=== PATIENT | female | born 1975 | race African-American/Black ===

== ENCOUNTER 2019-12-06 08:10 | Emergency (ER) | payer MEDICAID ==
[~2019-12-06] VITALS: Ht 175.3 cm; Wt 163.6 kg
[2019-12-06 08:14] VITALS: BP 117/50
== END 2019-12-06 09:05 | disposition left against medical advice (07) ==
LOC: EMS 08:11
DX: R45.851 Suicidal ideations (principal); Z53.21 Procedure and treatment not carried out due to patient leaving prior to being seen by health care provider

== ENCOUNTER 2020-01-13 05:21 | Inpatient (IN) | payer MEDICAID ==
[~2020-01-13] VITALS: Ht 175.3 cm; Wt 163.7 kg
[2020-01-13] VITALS (7 sets, daily range): BP systolic 118–125; BP diastolic 58–78
[2020-01-13] MEDS ORDERED: OLAN10TA3 PO (05:40)
[2020-01-13] MEDS ORDERED: HYDR-4031 PO (05:40)
[2020-01-13] MEDS ORDERED: RISP2 PO (05:40)
[2020-01-13 06:12] LABS: ANION GAP 11 mmol/L (8-16); CALCIUM, TOTAL 9.1 mg/dL (8.8-10.5); CARBON DIOXIDE 26 mmol/L (22-29); CHLORIDE 103 mmol/L (98-107); CREATININE 0.76 mg/dL (0.60-1.30); GLOMERULAR FILTR. RATE CALC > 60 mL/min (>60); GLUCOSE,RANDOM 72 mg/dL (70-110); SODIUM SERUM 140 mmol/L (136-145); UREA NITROGEN, BLOOD 9 mg/dL (7-18)
[2020-01-13 06:13] LABS: BASOPHILS % (AUTO) 0.9 % (0.0-2.0); EOSINOPHILS % (AUTO) 1.5 % (1.0-6.0); HEMATOCRIT 34.1 % (36-46); HEMOGLOBIN 10.9 g/dL (12.0-16.0); LYMPHOCYTES # (AUTO) 1.7 K/uL (1.0-4.8); LYMPHOCYTES % (AUTO) 24.1 % (22.0-44.0); MEAN CORPUSCULAR HEMOGLOBIN 24.7 pg (26.0-34.0); MEAN CORPUSCULAR VOLUME 77 fL (80-100); MONOCYTES # (AUTO) 0.4 K/uL (0.1-1.0); MONOCYTES % (AUTO) 5.5 % (2.0-9.0); NEUTROPHILS # (AUTO) 4.8 K/uL (1.8-7.7); PLATELET COUNT (AUTO) 221 K/uL (150-450); RED BLOOD CELL COUNT(AUTO) 4.44 MIL/uL (4.00-5.20); RED CELL DISTRIBUTION WIDTH 18.4 % (11.5-14.5)
[2020-01-13 06:19] LABS: AMPHET/METH SCREEN,URINE POSITIVE (NEGATIVE); BARBITURATE SCREEN, URINE NEGATIVE (NEGATIVE); BENZODIAZEPINES SCREEN,URINE NEGATIVE (NEGATIVE); CANNABINOID SCREEN,URINE POSITIVE (NEGATIVE); COCAINE SCREEN,URINE NEGATIVE (NEGATIVE); METHADONE SCREEN, URINE NEGATIVE (NEGATIVE); OPIATE SCREEN,URINE NEGATIVE (NEGATIVE); PHENCYCLIDINE SCREEN,URINE POSITIVE (NEGATIVE)
[2020-01-13 06:27] LABS: ALANINE AMINOTRANSFERASE 20 U/L (12-78); ALBUMIN 3.7 g/dL (3.4-5.0); ALKALINE PHOSPHATASE 85 U/L (46-116); ASPARTATE AMINOTRANSFERASE 17 U/L (15-37); BILIRUBIN,TOTAL 0.4 mg/dL (0.1-1.0); HCG,QUANTITATIVE < 1 mIU/mL (0-6); TOTAL PROTEIN, SERUM 7.9 g/dL (6.4-8.2)
[2020-01-13 06:42] LABS: BILIRUBIN,URINE NEGATIVE (NEGATIVE); GLUCOSE, URINE (UA) NEGATIVE (NEGATIVE); KETONES,URINE NEGATIVE (NEGATIVE); LEUKOCYTE ESTERASE ,URINE NEGATIVE (NEGATIVE); NITRATE,URINE NEGATIVE (NEGATIVE); OCCULT BLOOD,URINE NEGATIVE (NEGATIVE); UROBILINOGEN,URINE 0.2 mg/dL (<=1.0)
[2020-01-13 06:43] LABS: APPEARANCE,URINE CLEAR (CLEAR); PROTEIN,URINE TRACE (NEGATIVE)
[2020-01-13] MEDS ORDERED: LOPERAMIDE HCL 2 MG CAPSULE PO PRN (10:00)
[2020-01-13] MEDS ORDERED: LORazepam 2 MG TABLET PO PRN (10:00)
[2020-01-13] MEDS ORDERED: GuaiFENesin/D-METHORPHAN [SUGAR-FREE] 200-20MG/10 ML SYRUP UDCUP PO PRN (10:00)
[2020-01-13] MEDS ORDERED: OLANZapine 5 MG RAPDIS TABLET PO PRN (10:00)
[2020-01-13] MEDS ORDERED: MAGNESIUM HYDROXIDE SUSPENSION 30 ML UDCUP PO PRN (10:00)
[2020-01-13] MEDS ORDERED: MAG HYDROX/AL HYDROX/SIMETH ES 30 ML SUSPENSION UDCUP PO PRN (10:00)
[2020-01-13] MEDS ORDERED: HydrOXYzine PAMOATE 50 MG CAPSULE PO PRN (10:00)
[2020-01-13] MEDS ORDERED: TUBERCULIN, PURIFIED PROTEIN DERIVATIVE 5 TU/0.1 ML SYRINGE ID ONE (10:00)
[2020-01-13] MEDS: GABAPENTIN 300 MG CAPSULE PO SCH ×3 (12:11→20:54)
[2020-01-13] MEDS: LORazepam 2 MG TABLET PO PRN ×2 (12:11→16:49)
[2020-01-13] MEDS: THIAMINE 100 MG TABLET PO SCH (20:54)
[2020-01-13] MEDS ORDERED: OLANZapine 5 MG RAPDIS TABLET PO SCH (21:00)
[2020-01-14] VITALS (8 sets, daily range): BP systolic 104–140; BP diastolic 56–78
[2020-01-14] MEDS: LORazepam 2 MG TABLET PO PRN (02:43)
[2020-01-14] MEDS ORDERED: LORazepam 2 MG TABLET PO PRN (07:00)
[2020-01-14 08:22] LABS: CHOL/HDL RATIO 2.1 (3.9-5.7); FREE T4 (FREE THYROXINE) 0.99 ng/dL (0.76-1.46); THYROID STIMULATING HORMONE 0.1 uIU/mL (0.36-3.74)
[2020-01-14] MEDS: NICOTINE 21 MG/24 HOUR PATCH TD SCH (09:07)
[2020-01-14] MEDS: GABAPENTIN 300 MG CAPSULE PO SCH ×4 (09:08→20:50)
[2020-01-14] MEDS: THIAMINE 100 MG TABLET PO SCH ×2 (09:08→16:38)
[2020-01-14] MEDS: MULTIVITAMINS WITH MINERALS, THERAPEUTIC TABLET PO SCH (09:08)
[2020-01-14] MEDS: FOLIC ACID 1 MG TABLET PO SCH (09:08)
[2020-01-14] MEDS: NALTREXONE HCL 50 MG TABLET PO SCH (09:08)
[2020-01-14] MEDS: FLUoxetine HCL 20 MG CAPSULE PO SCH (09:09)
[2020-01-14] MEDS: LORazepam 2 MG TABLET PO SCH ×4 (09:09→20:50)
[2020-01-14] MEDS: PROMETHAZINE HCL 25 MG TABLET PO PRN ×2 (10:17→17:16)
[2020-01-14] MEDS: ACETAMINOPHEN 325 MG TABLET PO PRN (17:16)
[2020-01-14] MEDS: OLANZapine 10 MG RAPDIS TABLET PO SCH (20:53)
[2020-01-15 00:26] VITALS: BP 127/94
[2020-01-15 01:15] VITALS: BP 127/94
[2020-01-15 08:23] VITALS: BP 146/85
[2020-01-15] MEDS: FOLIC ACID 1 MG TABLET PO SCH (09:23)
[2020-01-15] MEDS: THIAMINE 100 MG TABLET PO SCH ×2 (09:23→16:56)
[2020-01-15] MEDS: GABAPENTIN 300 MG CAPSULE PO SCH ×4 (09:23→20:21)
[2020-01-15] MEDS: MULTIVITAMINS WITH MINERALS, THERAPEUTIC TABLET PO SCH (09:23)
[2020-01-15] MEDS: FLUoxetine HCL 20 MG CAPSULE PO SCH (09:24)
[2020-01-15] MEDS: LORazepam 2 MG TABLET PO SCH ×4 (09:24→20:20)
[2020-01-15] MEDS: NICOTINE 21 MG/24 HOUR PATCH TD SCH (09:24)
[2020-01-15] MEDS: NALTREXONE HCL 50 MG TABLET PO SCH (09:24)
[2020-01-15 16:12] VITALS: BP 107/70
[2020-01-15 16:15] VITALS: BP 107/70
[2020-01-15] MEDS: OLANZapine 10 MG RAPDIS TABLET PO SCH (20:20)
[2020-01-16] VITALS (7 sets, daily range): BP systolic 101–148; BP diastolic 65–103
[2020-01-16] MEDS: ZOLPIDEM TARTRATE 10 MG TABLET PO PRN (01:25)
[2020-01-16] MEDS: ACETAMINOPHEN 325 MG TABLET PO PRN (01:25)
[2020-01-16] MEDS ORDERED: LORazepam 1 MG TABLET PO PRN (07:00)
[2020-01-16] MEDS: NALTREXONE HCL 50 MG TABLET PO SCH (09:07)
[2020-01-16] MEDS: LORazepam 1 MG TABLET PO SCH ×4 (09:07→20:31)
[2020-01-16] MEDS: GABAPENTIN 300 MG CAPSULE PO SCH ×2 (09:08→12:12)
[2020-01-16] MEDS: MULTIVITAMINS WITH MINERALS, THERAPEUTIC TABLET PO SCH (09:08)
[2020-01-16] MEDS: THIAMINE 100 MG TABLET PO SCH ×2 (09:08→16:28)
[2020-01-16] MEDS: FOLIC ACID 1 MG TABLET PO SCH (09:08)
[2020-01-16] MEDS: NICOTINE 21 MG/24 HOUR PATCH TD SCH (09:08)
[2020-01-16] MEDS: FLUoxetine HCL 20 MG CAPSULE PO SCH (10:06)
[2020-01-16] MEDS: GABAPENTIN 400 MG CAPSULE PO SCH ×2 (16:28→20:31)
[2020-01-16] MEDS: OLANZapine 10 MG RAPDIS TABLET PO SCH (20:31)
[2020-01-17 02:49] VITALS: BP 100/74
[2020-01-17 08:33] VITALS: BP 128/79
[2020-01-17] MEDS: FLUoxetine HCL 20 MG CAPSULE PO SCH (09:49)
[2020-01-17] MEDS: FOLIC ACID 1 MG TABLET PO SCH (09:49)
[2020-01-17] MEDS: MULTIVITAMINS WITH MINERALS, THERAPEUTIC TABLET PO SCH (09:49)
[2020-01-17] MEDS: GABAPENTIN 400 MG CAPSULE PO SCH ×4 (09:49→21:02)
[2020-01-17] MEDS: THIAMINE 100 MG TABLET PO SCH ×2 (09:49→17:01)
[2020-01-17] MEDS: NALTREXONE HCL 50 MG TABLET PO SCH (09:50)
[2020-01-17] MEDS: LORazepam 1 MG TABLET PO PRN ×2 (09:50→17:00)
[2020-01-17] MEDS: NICOTINE 21 MG/24 HOUR PATCH TD SCH (09:51)
[2020-01-17 13:45] VITALS: BP 128/79
[2020-01-17 16:35] VITALS: BP 135/90
[2020-01-17 18:39] VITALS: BP 128/79
[2020-01-17] MEDS: OLANZapine 10 MG RAPDIS TABLET PO SCH (21:03)
[2020-01-17] MEDS: DIVALPROEX SODIUM 500 MG ER TABLET PO SCH (21:03)
[2020-01-18] VITALS: BP 138/89
[2020-01-18 08:30] VITALS: BP 102/62
[2020-01-18] MEDS: NICOTINE 21 MG/24 HOUR PATCH TD SCH (09:45)
[2020-01-18] MEDS: GABAPENTIN 400 MG CAPSULE PO SCH ×4 (09:45→20:59)
[2020-01-18] MEDS: NALTREXONE HCL 50 MG TABLET PO SCH (09:45)
[2020-01-18] MEDS: FOLIC ACID 1 MG TABLET PO SCH (09:45)
[2020-01-18] MEDS: THIAMINE 100 MG TABLET PO SCH ×2 (09:46→17:10)
[2020-01-18] MEDS: FLUoxetine HCL 20 MG CAPSULE PO SCH (09:46)
[2020-01-18] MEDS: MULTIVITAMINS WITH MINERALS, THERAPEUTIC TABLET PO SCH (09:46)
[2020-01-18 10:10] VITALS: BP 102/62
[2020-01-18 16:15] VITALS: BP 118/69
[2020-01-18] MEDS: DIVALPROEX SODIUM 500 MG ER TABLET PO SCH (20:59)
[2020-01-18] MEDS: OLANZapine 10 MG RAPDIS TABLET PO SCH (20:59)
[2020-01-18] MEDS: ZOLPIDEM TARTRATE 10 MG TABLET PO PRN (21:20)
[2020-01-19 03:18] VITALS: BP 110/70
[2020-01-19] MEDS: NICOTINE 21 MG/24 HOUR PATCH TD SCH (09:02)
[2020-01-19] MEDS: GABAPENTIN 400 MG CAPSULE PO SCH ×4 (09:02→20:12)
[2020-01-19] MEDS: MULTIVITAMINS WITH MINERALS, THERAPEUTIC TABLET PO SCH (09:02)
[2020-01-19] MEDS: NALTREXONE HCL 50 MG TABLET PO SCH (09:02)
[2020-01-19] MEDS: THIAMINE 100 MG TABLET PO SCH ×2 (09:02→16:26)
[2020-01-19] MEDS: FOLIC ACID 1 MG TABLET PO SCH (09:02)
[2020-01-19] MEDS: FLUoxetine HCL 20 MG CAPSULE PO SCH (09:02)
[2020-01-19 17:31] VITALS: BP 129/71
[2020-01-19] MEDS: OLANZapine 10 MG RAPDIS TABLET PO SCH (20:12)
[2020-01-19] MEDS: ZOLPIDEM TARTRATE 10 MG TABLET PO PRN (20:12)
[2020-01-19] MEDS: DIVALPROEX SODIUM 500 MG ER TABLET PO SCH (20:12)
[2020-01-19] MEDS ORDERED: LORazepam 1 MG TABLET PO PRN (20:45)
[2020-01-19 20:52] VITALS: BP 141/89
[2020-01-19] MEDS: PROMETHAZINE HCL 25 MG TABLET PO PRN (21:11)
[2020-01-20 04:17] VITALS: BP 116/72
[2020-01-20 08:43] VITALS: BP 129/75
[2020-01-20] MEDS: FOLIC ACID 1 MG TABLET PO SCH (08:46)
[2020-01-20] MEDS: GABAPENTIN 400 MG CAPSULE PO SCH ×3 (08:46→16:07)
[2020-01-20] MEDS: THIAMINE 100 MG TABLET PO SCH ×2 (08:46→16:07)
[2020-01-20] MEDS: MULTIVITAMINS WITH MINERALS, THERAPEUTIC TABLET PO SCH (08:46)
[2020-01-20] MEDS: NALTREXONE HCL 50 MG TABLET PO SCH (08:46)
[2020-01-20] MEDS: FLUoxetine HCL 20 MG CAPSULE PO SCH (08:46)
[2020-01-20] MEDS: NICOTINE 21 MG/24 HOUR PATCH TD SCH (08:47)
[2020-01-20] MEDS ORDERED: FLUO-191 PO (13:15)
[2020-01-20] MEDS ORDERED: GABA-1201 PO (13:15)
[2020-01-20] MEDS ORDERED: NALT50TA PO (13:15)
[2020-01-20] MEDS ORDERED: DIVA500T52 PO (13:15)
[2020-01-20] MEDS ORDERED: OLAN10TA22 PO (13:15)
[2020-01-20 16:17] VITALS: BP 146/83
== END 2020-01-20 19:06 | disposition home or self-care (01) | DRG 750 ==
LOC: EMS 05:21 → B3A 09:55
PROVIDERS: ADMIT Psychiatry & Neurology Psychiatry; ATTEND Psychiatry & Neurology Psychiatry
DX: F25.0 Schizoaffective disorder, bipolar type (principal); E66.01 Morbid (severe) obesity due to excess calories; R45.851 Suicidal ideations; F11.90 Opioid use, unspecified, uncomplicated; F17.210 Nicotine dependence, cigarettes, uncomplicated; J45.909 Unspecified asthma, uncomplicated; Z62.810 Personal history of physical and sexual abuse in childhood; Z65.3 Problems related to other legal circumstances; Z87.440 Personal history of urinary (tract) infections; Z91.19 Patient's noncompliance with other medical treatment and regimen; Z91.410 Personal history of adult physical and sexual abuse; Z91.5 Personal history of self-harm; Z68.43 Body mass index [BMI] 50.0-59.9, adult; Z79.899 Other long term (current) drug therapy
CPT/HCPCS: 83036; 84439; 84443; 86592; G0480

== ENCOUNTER 2020-01-19 23:52 | Emergency (ER) | payer MEDICAID ==
[~2020-01-19] VITALS: Ht 175.3 cm; Wt 156.3 kg
[~2020-01-19 23:52] MED LIST: HYDR-4031 PO; OLAN10TA3 PO; RISP2 PO
[2020-01-20] MEDS ORDERED: SODIUM CHLORIDE 0.9% 1,000 ML IV ONE (00:15)
[2020-01-20] MEDS ORDERED: MAG HYDROX/AL HYDROX/SIMETH 30 ML SUSP UDCUP PO ONE (00:15)
[2020-01-20] MEDS ORDERED: KETOROLAC TROMETHAMINE 30 MG/ML VIAL IVP ONE (00:15)
[2020-01-20] MEDS ORDERED: ONDANSETRON HCL 4 MG/2 ML VIAL IVP ONE (00:15)
[2020-01-20] MEDS ORDERED: FAMOTIDINE 10 MG/ML 2 ML VIAL IVP ONE (00:15)
[2020-01-20 01:21] LABS: BASOPHILS % (AUTO) 0.6 % (0.0-2.0); EOSINOPHILS % (AUTO) 0.6 % (1.0-6.0); HEMATOCRIT 34.8 % (36-46); HEMOGLOBIN 11.3 g/dL (12.0-16.0); LYMPHOCYTES # (AUTO) 0.9 K/uL (1.0-4.8); LYMPHOCYTES % (AUTO) 9.5 % (22.0-44.0); MEAN CORPUSCULAR HGB CONC 32.6 G/dL (31.0-37.0); MEAN CORPUSCULAR VOLUME 77 fL (80-100); MONOCYTES # (AUTO) 0.3 K/uL (0.1-1.0); MONOCYTES % (AUTO) 3.4 % (2.0-9.0); NEUTROPHILS # (AUTO) 8.3 K/uL (1.8-7.7); PLATELET COUNT (AUTO) 227 K/uL (150-450); RED BLOOD CELL COUNT(AUTO) 4.54 MIL/uL (4.00-5.20); RED CELL DISTRIBUTION WIDTH 18.6 % (11.5-14.5)
[2020-01-20 01:23] LABS: NEUTROPHILS % (AUTO) 85.9 % (40.0-70.0)
[2020-01-20 01:36] LABS: ANION GAP 7 mmol/L (8-16); CARBON DIOXIDE 30 mmol/L (22-29); CHLORIDE 102 mmol/L (98-107); CREATININE 0.81 mg/dL (0.60-1.30); GLOMERULAR FILTR. RATE CALC > 60 mL/min (>60); GLUCOSE,RANDOM 112 mg/dL (70-110); POTASSIUM 4.8 mmol/L (3.5-5.1); SODIUM SERUM 139 mmol/L (136-145); UREA NITROGEN, BLOOD 24 mg/dL (7-18)
[2020-01-20 01:41] LABS: ALANINE AMINOTRANSFERASE 41 U/L (12-78); ALBUMIN 3.5 g/dL (3.4-5.0); ALKALINE PHOSPHATASE 77 U/L (46-116); ASPARTATE AMINOTRANSFERASE 22 U/L (15-37); BILIRUBIN,TOTAL 0.1 mg/dL (0.1-1.0); HCG,QUANTITATIVE < 1 mIU/mL (0-6); LIPASE 147 U/L (73-393); TOTAL PROTEIN, SERUM 7.5 g/dL (6.4-8.2)
[2020-01-20 02:44] LABS: APPEARANCE,URINE CLEAR (CLEAR); BILIRUBIN,URINE NEGATIVE (NEGATIVE); GLUCOSE, URINE (UA) NEGATIVE (NEGATIVE); KETONES,URINE NEGATIVE (NEGATIVE); LEUKOCYTE ESTERASE ,URINE TRACE (NEGATIVE); NITRATE,URINE NEGATIVE (NEGATIVE); OCCULT BLOOD,URINE LARGE (NEGATIVE); PROTEIN,URINE NEGATIVE (NEGATIVE); UROBILINOGEN,URINE 0.2 mg/dL (<=1.0)
[2020-01-20 02:59] LABS: BACTERIA,URINE Few /HPF (None Seen); SQUAMOUS EPITHELIAL CELL,UR Few /LPF (None Seen); WBC,URINE 0-2 /HPF (0-5); YEAST,URINE None Seen /HPF (None Seen)
[2020-01-20 03:26] VITALS: BP 127/70
[2020-01-20] MEDS ORDERED: FLUO-191 PO (13:15)
[2020-01-20] MEDS ORDERED: GABA-1201 PO (13:15)
[2020-01-20] MEDS ORDERED: NALT50TA PO (13:15)
[2020-01-20] MEDS ORDERED: OLAN10TA22 PO (13:15)
[2020-01-20] MEDS ORDERED: DIVA500T52 PO (13:15)
== END 2020-01-20 03:56 | disposition home or self-care (01) ==
LOC: EMS 23:52
DX: K52.9 Noninfective gastroenteritis and colitis, unspecified (principal); F17.210 Nicotine dependence, cigarettes, uncomplicated; J45.909 Unspecified asthma, uncomplicated; F11.90 Opioid use, unspecified, uncomplicated; F12.90 Cannabis use, unspecified, uncomplicated; F19.90 Other psychoactive substance use, unspecified, uncomplicated
CPT/HCPCS: 36415; 74177; 76705; 80053; 81001; 83690; 84702; 85025; 96361; 96374; 96375; 99285; J1885; J2405; J3490; J7030

== ENCOUNTER 2020-04-28 02:06 | Inpatient (IN) | payer MEDICAID ==
[~2020-04-28] VITALS: Ht 175.3 cm; Wt 163.5 kg
[2020-04-28] VITALS (10 sets, daily range): BP systolic 112–136; BP diastolic 63–79
[~2020-04-28 02:06] MED LIST changes: +DIVA-80 PO; +FLUO-191 PO; +GABA-1201 PO; -HYDR-4031 PO; +NALT50TA PO; +OLAN10TA22 PO; -OLAN10TA3 PO; -RISP2 PO
[2020-04-28] MEDS ORDERED: IBUPROFEN 800 MG TABLET PO ONE (02:30)
[2020-04-28 02:55] LABS: BASOPHILS % (AUTO) 0.8 % (0.0-2.0); EOSINOPHILS % (AUTO) 3.9 % (1.0-6.0); HEMATOCRIT 32.5 % (36-46); HEMOGLOBIN 10.6 g/dL (12.0-16.0); LYMPHOCYTES # (AUTO) 1.7 K/uL (1.0-4.8); LYMPHOCYTES % (AUTO) 29.5 % (22.0-44.0); MEAN CORPUSCULAR HEMOGLOBIN 25.2 pg (26.0-34.0); MEAN CORPUSCULAR HGB CONC 32.6 G/dL (31.0-37.0); MEAN CORPUSCULAR VOLUME 77 fL (80-100); MONOCYTES # (AUTO) 0.4 K/uL (0.1-1.0); MONOCYTES % (AUTO) 6.6 % (2.0-9.0); NEUTROPHILS # (AUTO) 3.4 K/uL (1.8-7.7); NEUTROPHILS % (AUTO) 59.2 % (40.0-70.0); PLATELET COUNT (AUTO) 221 K/uL (150-450)
[2020-04-28 02:59] LABS: ANION GAP 10 mmol/L (8-16); CALCIUM, TOTAL 8.8 mg/dL (8.8-10.5); CARBON DIOXIDE 28 mmol/L (22-29); CHLORIDE 103 mmol/L (98-107); CREATININE 0.85 mg/dL (0.60-1.30); GLOMERULAR FILTR. RATE CALC > 60 mL/min (>60); GLUCOSE,RANDOM 76 mg/dL (70-110); POTASSIUM 3.4 mmol/L (3.5-5.1); SODIUM SERUM 141 mmol/L (136-145); UREA NITROGEN, BLOOD 5 mg/dL (7-18)
[2020-04-28 03:10] LABS: ALANINE AMINOTRANSFERASE 19 U/L (12-78); ALBUMIN 3.5 g/dL (3.4-5.0); ALKALINE PHOSPHATASE 72 U/L (46-116); ASPARTATE AMINOTRANSFERASE 19 U/L (15-37); BILIRUBIN,TOTAL 0.3 mg/dL (0.1-1.0); HCG,QUANTITATIVE < 1 mIU/mL (0-6)
[2020-04-28] MEDS ORDERED: CYCLOBENZAPRINE HCL 10 MG TABLET PO ONE (03:15)
[2020-04-28] MEDS ORDERED: ZOLPIDEM TARTRATE 10 MG TABLET PO PRN (03:45)
[2020-04-28] MEDS ORDERED: OLANZapine 5 MG RAPDIS TABLET PO PRN (03:45)
[2020-04-28] MEDS ORDERED: LORazepam 2 MG TABLET PO PRN (03:45)
[2020-04-28 08:56] LABS: BILIRUBIN,URINE NEGATIVE (NEGATIVE); GLUCOSE, URINE (UA) NEGATIVE (NEGATIVE); KETONES,URINE NEGATIVE (NEGATIVE); LEUKOCYTE ESTERASE ,URINE TRACE (NEGATIVE); NITRATE,URINE NEGATIVE (NEGATIVE); OCCULT BLOOD,URINE NEGATIVE (NEGATIVE); PROTEIN,URINE TRACE (NEGATIVE); UROBILINOGEN,URINE 0.2 mg/dL (<=1.0)
[2020-04-28 09:01] LABS: AMPHET/METH SCREEN,URINE POSITIVE (NEGATIVE); BARBITURATE SCREEN, URINE NEGATIVE (NEGATIVE); BENZODIAZEPINES SCREEN,URINE POSITIVE (NEGATIVE); CANNABINOID SCREEN,URINE POSITIVE (NEGATIVE); COCAINE SCREEN,URINE NEGATIVE (NEGATIVE); METHADONE SCREEN, URINE NEGATIVE (NEGATIVE); OPIATE SCREEN,URINE NEGATIVE (NEGATIVE)
[2020-04-28 09:04] LABS: PHENCYCLIDINE SCREEN,URINE NEGATIVE (NEGATIVE)
[2020-04-28 09:09] LABS: APPEARANCE,URINE HAZY (CLEAR); RBC,URINE None Seen /HPF (0-2)
[2020-04-28 09:10] LABS: BACTERIA,URINE Few /HPF (None Seen); SQUAMOUS EPITHELIAL CELL,UR Few /LPF (None Seen); STARCH,URINE Moderate /LPF (None Seen)
[2020-04-28] MEDS ORDERED: CYANOCOBALAMIN 1,000 MCG/ML VIAL IM ONE (09:45)
[2020-04-28] MEDS ORDERED: DIAZEPAM 10 MG TABLET PO PRN (09:45)
[2020-04-28] MEDS ORDERED: HydrOXYzine PAMOATE 50 MG CAPSULE PO PRN (09:45)
[2020-04-28] MEDS ORDERED: LOPERAMIDE HCL 2 MG CAPSULE PO PRN ×2 (09:45)
[2020-04-28] MEDS ORDERED: MAG HYDROX/AL HYDROX/SIMETH ES 30 ML SUSPENSION UDCUP PO PRN (09:45)
[2020-04-28] MEDS ORDERED: MAGNESIUM HYDROXIDE SUSPENSION 30 ML UDCUP PO PRN (09:45)
[2020-04-28] MEDS ORDERED: PROMETHAZINE HCL 25 MG TABLET PO PRN (09:45)
[2020-04-28] MEDS ORDERED: GuaiFENesin/D-METHORPHAN [SUGAR-FREE] 200-20MG/10 ML SYRUP UDCUP PO PRN (09:45)
[2020-04-28] MEDS: ACETAMINOPHEN 325 MG TABLET PO PRN ×2 (10:43→17:26)
[2020-04-28] MEDS: GABAPENTIN 400 MG CAPSULE PO SCH ×3 (13:38→20:56)
[2020-04-28] MEDS: THIAMINE 100 MG TABLET PO SCH (16:48)
[2020-04-28] MEDS: DIVALPROEX SODIUM 500 MG ER TABLET PO SCH (20:56)
[2020-04-29] VITALS (9 sets, daily range): BP systolic 109–134; BP diastolic 62–86
[2020-04-29] MEDS: IBUPROFEN 600 MG TABLET PO PRN ×2 (04:52→20:58)
[2020-04-29] MEDS ORDERED: DIAZEPAM 10 MG TABLET PO PRN (07:00)
[2020-04-29 07:03] LABS: C-REACTIVE PROTEIN QUANT 0.47 mg/dL (0.00-0.30); CHOL/HDL RATIO 2.8 (3.9-5.7); FREE T4 (FREE THYROXINE) 0.83 ng/dL (0.76-1.46); THYROID STIMULATING HORMONE 2.87 uIU/mL (0.36-3.74)
[2020-04-29 07:24] LABS: URIC ACID 6.6 mg/dL (2.6-7.2)
[2020-04-29] MEDS ORDERED: LURASIDONE HCL 40 MG TABLET PO SCH (07:30)
[2020-04-29] MEDS ORDERED: DULoxetine HCL 20 MG CAPSULE PO SCH (09:00)
[2020-04-29] MEDS: MULTIVITAMINS WITH MINERALS, THERAPEUTIC TABLET PO SCH (09:24)
[2020-04-29] MEDS: DIAZEPAM 10 MG TABLET PO SCH ×4 (09:24→21:07)
[2020-04-29] MEDS: NALTREXONE HCL 50 MG TABLET PO SCH (09:24)
[2020-04-29] MEDS: POTASSIUM CHLORIDE 8 MEQ ER TABLET PO SCH (09:24)
[2020-04-29] MEDS: GABAPENTIN 400 MG CAPSULE PO SCH ×3 (09:24→16:25)
[2020-04-29] MEDS: FOLIC ACID 1 MG TABLET PO SCH (09:25)
[2020-04-29] MEDS: FUROSEMIDE 20 MG TABLET PO SCH (09:25)
[2020-04-29] MEDS: THIAMINE 100 MG TABLET PO SCH ×2 (09:25→16:26)
[2020-04-29] MEDS: DIVALPROEX SODIUM 500 MG ER TABLET PO SCH (20:57)
[2020-04-29] MEDS: GABAPENTIN 300 MG CAPSULE PO SCH (21:02)
[2020-04-30 02:45] VITALS: BP 108/60
[2020-04-30 02:46] VITALS: BP 108/60
[2020-04-30] MEDS ORDERED: LURASIDONE HCL 60 MG TABLET PO SCH (07:30)
[2020-04-30] MEDS ORDERED: DULoxetine HCL 30 MG CAPSULE PO SCH (09:00)
[2020-04-30 09:03] VITALS: BP 135/87
[2020-04-30 09:04] VITALS: BP 144/100
[2020-04-30] MEDS: GABAPENTIN 300 MG CAPSULE PO SCH ×4 (09:41→20:28)
[2020-04-30] MEDS: FOLIC ACID 1 MG TABLET PO SCH (09:41)
[2020-04-30] MEDS: DIAZEPAM 10 MG TABLET PO SCH ×4 (09:41→20:28)
[2020-04-30] MEDS: THIAMINE 100 MG TABLET PO SCH ×2 (09:41→17:02)
[2020-04-30] MEDS: POTASSIUM CHLORIDE 8 MEQ ER TABLET PO SCH (09:41)
[2020-04-30] MEDS: MULTIVITAMINS WITH MINERALS, THERAPEUTIC TABLET PO SCH (09:41)
[2020-04-30] MEDS: NALTREXONE HCL 50 MG TABLET PO SCH (09:41)
[2020-04-30] MEDS: FUROSEMIDE 20 MG TABLET PO SCH (09:41)
[2020-04-30 16:49] VITALS: BP 119/76
[2020-04-30 17:32] VITALS: BP 119/76
[2020-04-30] MEDS: DIVALPROEX SODIUM 500 MG ER TABLET PO SCH (20:28)
[2020-05-01 06:21] VITALS: BP 142/70
[2020-05-01 06:31] VITALS: BP 142/70
[2020-05-01] MEDS ORDERED: DIAZEPAM 5 MG TABLET PO PRN (07:00)
[2020-05-01] MEDS ORDERED: LURASIDONE HCL 80 MG TABLET PO SCH (07:30)
[2020-05-01 09:07] VITALS: BP 120/65
[2020-05-01] MEDS: GABAPENTIN 300 MG CAPSULE PO SCH ×3 (10:21→17:07)
[2020-05-01] MEDS: FOLIC ACID 1 MG TABLET PO SCH (10:21)
[2020-05-01] MEDS: DIAZEPAM 5 MG TABLET PO SCH ×4 (10:21→21:14)
[2020-05-01] MEDS: DULoxetine HCL 20 MG CAPSULE PO SCH (10:21)
[2020-05-01] MEDS: MULTIVITAMINS WITH MINERALS, THERAPEUTIC TABLET PO SCH (10:22)
[2020-05-01] MEDS: THIAMINE 100 MG TABLET PO SCH ×2 (10:22→17:08)
[2020-05-01] MEDS: POTASSIUM CHLORIDE 8 MEQ ER TABLET PO SCH (10:22)
[2020-05-01] MEDS: NALTREXONE HCL 50 MG TABLET PO SCH (10:22)
[2020-05-01] MEDS: FUROSEMIDE 20 MG TABLET PO SCH (10:22)
[2020-05-01 16:00] VITALS: BP 138/71
[2020-05-01] MEDS: DIVALPROEX SODIUM 500 MG ER TABLET PO SCH (21:13)
[2020-05-01] MEDS: GABAPENTIN 400 MG CAPSULE PO SCH (21:14)
[2020-05-02] MEDS: LURASIDONE HCL 20 MG TABLET PO SCH (06:45)
[2020-05-02 06:56] VITALS: BP 134/80
[2020-05-02] MEDS ORDERED: DIAZEPAM 5 MG TABLET PO PRN (07:00)
[2020-05-02 08:00] VITALS: BP 115/54
[2020-05-02] MEDS: POTASSIUM CHLORIDE 8 MEQ ER TABLET PO SCH (10:27)
[2020-05-02] MEDS: NALTREXONE HCL 50 MG TABLET PO SCH (10:30)
[2020-05-02] MEDS: THIAMINE 100 MG TABLET PO SCH ×2 (10:30→17:19)
[2020-05-02] MEDS: FOLIC ACID 1 MG TABLET PO SCH (10:30)
[2020-05-02] MEDS: FUROSEMIDE 20 MG TABLET PO SCH (10:31)
[2020-05-02] MEDS: DULoxetine HCL 20 MG CAPSULE PO SCH (10:31)
[2020-05-02] MEDS: MULTIVITAMINS WITH MINERALS, THERAPEUTIC TABLET PO SCH (10:31)
[2020-05-02] MEDS: GABAPENTIN 400 MG CAPSULE PO SCH ×4 (10:31→20:41)
[2020-05-02 16:00] VITALS: BP 148/75
[2020-05-02] MEDS: DIVALPROEX SODIUM 500 MG ER TABLET PO SCH (20:41)
[2020-05-03 06:18] VITALS: BP 126/77
[2020-05-03 06:19] VITALS: BP 126/77
[2020-05-03] MEDS: LURASIDONE HCL 20 MG TABLET PO SCH (07:00)
[2020-05-03 08:00] VITALS: BP 140/79
[2020-05-03 10:01] VITALS: BP 140/79
[2020-05-03] MEDS: FOLIC ACID 1 MG TABLET PO SCH (11:05)
[2020-05-03] MEDS: DULoxetine HCL 20 MG CAPSULE PO SCH (11:05)
[2020-05-03] MEDS: MULTIVITAMINS WITH MINERALS, THERAPEUTIC TABLET PO SCH (11:06)
[2020-05-03] MEDS: GABAPENTIN 400 MG CAPSULE PO SCH ×4 (11:06→20:25)
[2020-05-03] MEDS: POTASSIUM CHLORIDE 8 MEQ ER TABLET PO SCH (11:06)
[2020-05-03] MEDS: THIAMINE 100 MG TABLET PO SCH ×2 (11:06→16:38)
[2020-05-03] MEDS: NALTREXONE HCL 50 MG TABLET PO SCH (11:07)
[2020-05-03] MEDS: FUROSEMIDE 20 MG TABLET PO SCH (11:08)
[2020-05-03 16:32] VITALS: BP 131/79
[2020-05-03] MEDS: DIVALPROEX SODIUM 500 MG ER TABLET PO SCH (20:23)
[2020-05-04 07:01] VITALS: BP 120/81
[2020-05-04] MEDS ORDERED: LURASIDONE HCL 40 MG TABLET PO SCH (07:30)
[2020-05-04 09:00] VITALS: BP 123/73
[2020-05-04] MEDS: DULoxetine HCL 20 MG CAPSULE PO SCH (09:04)
[2020-05-04] MEDS: GABAPENTIN 400 MG CAPSULE PO SCH ×4 (09:05→21:11)
[2020-05-04] MEDS: NALTREXONE HCL 50 MG TABLET PO SCH (09:05)
[2020-05-04] MEDS: FUROSEMIDE 20 MG TABLET PO SCH (09:05)
[2020-05-04] MEDS: THIAMINE 100 MG TABLET PO SCH ×2 (09:05→16:59)
[2020-05-04] MEDS: FOLIC ACID 1 MG TABLET PO SCH (09:05)
[2020-05-04] MEDS: MULTIVITAMINS WITH MINERALS, THERAPEUTIC TABLET PO SCH (09:05)
[2020-05-04] MEDS: POTASSIUM CHLORIDE 8 MEQ ER TABLET PO SCH (09:07)
[2020-05-04] MEDS ORDERED: ONDANSETRON HCL 4 MG/2 ML VIAL IM PRN (10:00)
[2020-05-04 10:57] VITALS: BP 123/75
[2020-05-04 16:48] VITALS: BP 122/76
[2020-05-04] MEDS ORDERED: MIRTAZAPINE 15 MG TABLET PO SCH (21:00)
[2020-05-04 21:06] VITALS: BP 122/76
[2020-05-04] MEDS: DIVALPROEX SODIUM 500 MG ER TABLET PO SCH (21:11)
[2020-05-04] MEDS: ZOLPIDEM TARTRATE 10 MG TABLET PO SCH (21:19)
[2020-05-05] VITALS: BP 147/80
[2020-05-05] MEDS ORDERED: LURASIDONE HCL 40 MG TABLET PO SCH (07:30)
[2020-05-05 08:55] VITALS: BP 154/94
[2020-05-05 09:26] VITALS: BP 154/94
[2020-05-05] MEDS: MULTIVITAMINS WITH MINERALS, THERAPEUTIC TABLET PO SCH (10:32)
[2020-05-05] MEDS: FUROSEMIDE 20 MG TABLET PO SCH (10:32)
[2020-05-05] MEDS: THIAMINE 100 MG TABLET PO SCH ×2 (10:32→16:20)
[2020-05-05] MEDS: POTASSIUM CHLORIDE 8 MEQ ER TABLET PO SCH (10:32)
[2020-05-05] MEDS: DULoxetine HCL 60 MG CAPSULE PO SCH (10:32)
[2020-05-05] MEDS: FOLIC ACID 1 MG TABLET PO SCH (10:32)
[2020-05-05] MEDS: GABAPENTIN 400 MG CAPSULE PO SCH ×4 (10:32→20:12)
[2020-05-05] MEDS: NALTREXONE HCL 50 MG TABLET PO SCH (10:32)
[2020-05-05 16:00] VITALS: BP 129/78
[2020-05-05 18:18] VITALS: BP 111/69
[2020-05-05] MEDS: DIVALPROEX SODIUM 500 MG ER TABLET PO SCH (20:12)
[2020-05-05] MEDS: ZOLPIDEM TARTRATE 10 MG TABLET PO SCH (20:13)
[2020-05-05] MEDS: MIRTAZAPINE 30 MG TABLET PO SCH (21:03)
[2020-05-06 02:10] VITALS: BP 119/70
[2020-05-06] MEDS: IBUPROFEN 600 MG TABLET PO PRN (02:14)
[2020-05-06] MEDS ORDERED: LURASIDONE HCL 40 MG TABLET PO SCH (07:30)
[2020-05-06 08:52] VITALS: BP 149/66
[2020-05-06] MEDS: THIAMINE 100 MG TABLET PO SCH ×2 (11:28→16:07)
[2020-05-06] MEDS: GABAPENTIN 400 MG CAPSULE PO SCH ×4 (11:28→20:48)
[2020-05-06] MEDS: FUROSEMIDE 20 MG TABLET PO SCH (11:28)
[2020-05-06] MEDS: NALTREXONE HCL 50 MG TABLET PO SCH (11:28)
[2020-05-06] MEDS: DULoxetine HCL 60 MG CAPSULE PO SCH (11:28)
[2020-05-06] MEDS: POTASSIUM CHLORIDE 8 MEQ ER TABLET PO SCH (11:28)
[2020-05-06] MEDS: MULTIVITAMINS WITH MINERALS, THERAPEUTIC TABLET PO SCH (11:28)
[2020-05-06] MEDS: FOLIC ACID 1 MG TABLET PO SCH (11:28)
[2020-05-06 17:00] VITALS: BP 107/57
[2020-05-06] MEDS: DIVALPROEX SODIUM 500 MG ER TABLET PO SCH (20:48)
[2020-05-06] MEDS: MIRTAZAPINE 30 MG TABLET PO SCH (20:48)
[2020-05-06] MEDS: ZOLPIDEM TARTRATE 10 MG TABLET PO SCH (20:48)
[2020-05-07] MEDS: LURASIDONE HCL 80 MG TABLET PO SCH (06:44)
[2020-05-07 09:21] VITALS: BP 126/90
[2020-05-07] MEDS: POTASSIUM CHLORIDE 8 MEQ ER TABLET PO SCH (09:57)
[2020-05-07] MEDS: MULTIVITAMINS WITH MINERALS, THERAPEUTIC TABLET PO SCH (09:58)
[2020-05-07] MEDS: THIAMINE 100 MG TABLET PO SCH ×2 (09:58→16:21)
[2020-05-07] MEDS: FOLIC ACID 1 MG TABLET PO SCH (09:59)
[2020-05-07] MEDS: DULoxetine HCL 60 MG CAPSULE PO SCH (09:59)
[2020-05-07] MEDS: GABAPENTIN 400 MG CAPSULE PO SCH ×4 (09:59→20:20)
[2020-05-07] MEDS: FUROSEMIDE 20 MG TABLET PO SCH (09:59)
[2020-05-07] MEDS: NALTREXONE HCL 50 MG TABLET PO SCH (10:00)
[2020-05-07 16:49] VITALS: BP 127/73
[2020-05-07] MEDS: DIVALPROEX SODIUM 500 MG ER TABLET PO SCH (20:19)
[2020-05-07] MEDS: ZOLPIDEM TARTRATE 10 MG TABLET PO SCH (20:19)
[2020-05-07] MEDS: MIRTAZAPINE 30 MG TABLET PO SCH (20:20)
[2020-05-08] MEDS: LURASIDONE HCL 80 MG TABLET PO SCH (07:04)
[2020-05-08 08:00] VITALS: BP 147/87
[2020-05-08] MEDS: FUROSEMIDE 20 MG TABLET PO SCH (09:30)
[2020-05-08] MEDS: POTASSIUM CHLORIDE 8 MEQ ER TABLET PO SCH (09:30)
[2020-05-08] MEDS: MULTIVITAMINS WITH MINERALS, THERAPEUTIC TABLET PO SCH (09:30)
[2020-05-08] MEDS: THIAMINE 100 MG TABLET PO SCH (09:30)
[2020-05-08] MEDS: DULoxetine HCL 60 MG CAPSULE PO SCH (09:30)
[2020-05-08] MEDS: NALTREXONE HCL 50 MG TABLET PO SCH (09:30)
[2020-05-08] MEDS: GABAPENTIN 400 MG CAPSULE PO SCH ×4 (09:30→21:22)
[2020-05-08] MEDS: FOLIC ACID 1 MG TABLET PO SCH (09:30)
[2020-05-08 17:12] VITALS: BP 118/72
[2020-05-08] MEDS: DIVALPROEX SODIUM 500 MG ER TABLET PO SCH (21:22)
[2020-05-08] MEDS: ZOLPIDEM TARTRATE 10 MG TABLET PO SCH (21:22)
[2020-05-08] MEDS: MIRTAZAPINE 30 MG TABLET PO SCH (21:22)
[2020-05-09 05:04] VITALS: BP 127/79
[2020-05-09] MEDS: LURASIDONE HCL 80 MG TABLET PO SCH (07:00)
[2020-05-09] MEDS: NALTREXONE HCL 50 MG TABLET PO SCH (09:04)
[2020-05-09] MEDS: GABAPENTIN 400 MG CAPSULE PO SCH ×4 (09:04→20:50)
[2020-05-09] MEDS: MULTIVITAMINS WITH MINERALS, THERAPEUTIC TABLET PO SCH (09:05)
[2020-05-09] MEDS: FUROSEMIDE 20 MG TABLET PO SCH (09:05)
[2020-05-09] MEDS: DULoxetine HCL 60 MG CAPSULE PO SCH (09:05)
[2020-05-09] MEDS: POTASSIUM CHLORIDE 8 MEQ ER TABLET PO SCH (09:05)
[2020-05-09 11:23] VITALS: BP 128/80
[2020-05-09 14:09] VITALS: BP 128/80
[2020-05-09 16:55] VITALS: BP 127/72
[2020-05-09] MEDS: ZOLPIDEM TARTRATE 10 MG TABLET PO SCH (20:50)
[2020-05-09] MEDS: MIRTAZAPINE 30 MG TABLET PO SCH (20:51)
[2020-05-09] MEDS: DIVALPROEX SODIUM 500 MG ER TABLET PO SCH (20:52)
[2020-05-10] MEDS: LURASIDONE HCL 80 MG TABLET PO SCH (06:51)
[2020-05-10] MEDS: GABAPENTIN 400 MG CAPSULE PO SCH ×4 (09:16→20:38)
[2020-05-10] MEDS: NALTREXONE HCL 50 MG TABLET PO SCH (09:16)
[2020-05-10] MEDS: POTASSIUM CHLORIDE 8 MEQ ER TABLET PO SCH (09:16)
[2020-05-10] MEDS: MULTIVITAMINS WITH MINERALS, THERAPEUTIC TABLET PO SCH (09:16)
[2020-05-10] MEDS: FUROSEMIDE 20 MG TABLET PO SCH (09:16)
[2020-05-10] MEDS: DULoxetine HCL 60 MG CAPSULE PO SCH (09:17)
[2020-05-10 09:51] VITALS: BP 126/79
[2020-05-10 13:03] VITALS: BP 126/79
[2020-05-10 16:00] VITALS: BP 129/75
[2020-05-10] MEDS: ZOLPIDEM TARTRATE 10 MG TABLET PO SCH (20:38)
[2020-05-10] MEDS: DIVALPROEX SODIUM 500 MG ER TABLET PO SCH (20:38)
[2020-05-10] MEDS: MIRTAZAPINE 30 MG TABLET PO SCH (22:13)
[2020-05-11] MEDS: LURASIDONE HCL 80 MG TABLET PO SCH (07:02)
[2020-05-11 08:00] VITALS: BP 124/75
[2020-05-11] MEDS: DULoxetine HCL 60 MG CAPSULE PO SCH (10:36)
[2020-05-11] MEDS: GABAPENTIN 400 MG CAPSULE PO SCH ×4 (10:36→20:16)
[2020-05-11] MEDS: FUROSEMIDE 20 MG TABLET PO SCH (10:37)
[2020-05-11] MEDS: POTASSIUM CHLORIDE 8 MEQ ER TABLET PO SCH (10:37)
[2020-05-11] MEDS: MULTIVITAMINS WITH MINERALS, THERAPEUTIC TABLET PO SCH (10:37)
[2020-05-11] MEDS: NALTREXONE HCL 50 MG TABLET PO SCH (10:37)
[2020-05-11] MEDS: IBUPROFEN 600 MG TABLET PO PRN (14:00)
[2020-05-11 16:41] VITALS: BP 119/69
[2020-05-11] MEDS: DIVALPROEX SODIUM 500 MG ER TABLET PO SCH (20:16)
[2020-05-11] MEDS: ZOLPIDEM TARTRATE 10 MG TABLET PO SCH (20:16)
[2020-05-11] MEDS: MIRTAZAPINE 30 MG TABLET PO SCH (20:16)
[2020-05-12 03:00] VITALS: BP 128/70
[2020-05-12] MEDS: IBUPROFEN 600 MG TABLET PO PRN ×2 (03:09→11:01)
[2020-05-12] MEDS: LURASIDONE HCL 80 MG TABLET PO SCH (06:57)
[2020-05-12 09:46] VITALS: BP 112/65
[2020-05-12] MEDS: POTASSIUM CHLORIDE 8 MEQ ER TABLET PO SCH (10:47)
[2020-05-12] MEDS: NALTREXONE HCL 50 MG TABLET PO SCH (10:47)
[2020-05-12] MEDS: DULoxetine HCL 20 MG CAPSULE PO SCH (10:47)
[2020-05-12] MEDS: GABAPENTIN 400 MG CAPSULE PO SCH ×4 (10:47→20:44)
[2020-05-12] MEDS: FUROSEMIDE 20 MG TABLET PO SCH (10:48)
[2020-05-12] MEDS: MULTIVITAMINS WITH MINERALS, THERAPEUTIC TABLET PO SCH (10:48)
[2020-05-12 16:30] VITALS: BP 118/69
[2020-05-12] MEDS: DIVALPROEX SODIUM 500 MG ER TABLET PO SCH (20:44)
[2020-05-12] MEDS: MIRTAZAPINE 30 MG TABLET PO SCH (20:45)
[2020-05-12] MEDS: ZOLPIDEM TARTRATE 10 MG TABLET PO SCH (20:45)
[2020-05-13] MEDS: IBUPROFEN 600 MG TABLET PO PRN (04:20)
[2020-05-13] MEDS: LURASIDONE HCL 80 MG TABLET PO SCH (07:15)
[2020-05-13 08:00] VITALS: BP 146/86
[2020-05-13] MEDS: NALTREXONE HCL 50 MG TABLET PO SCH (09:27)
[2020-05-13] MEDS: POTASSIUM CHLORIDE 8 MEQ ER TABLET PO SCH (09:27)
[2020-05-13] MEDS: DULoxetine HCL 20 MG CAPSULE PO SCH (09:27)
[2020-05-13] MEDS: FUROSEMIDE 20 MG TABLET PO SCH (09:27)
[2020-05-13] MEDS: MULTIVITAMINS WITH MINERALS, THERAPEUTIC TABLET PO SCH (09:27)
[2020-05-13] MEDS: GABAPENTIN 400 MG CAPSULE PO SCH ×4 (09:28→20:45)
[2020-05-13 17:00] VITALS: BP 123/65
[2020-05-13] MEDS ORDERED: DIVA-80 PO (18:31)
[2020-05-13] MEDS ORDERED: MIRT30 PO (18:32)
[2020-05-13] MEDS ORDERED: GABA-1201 PO (18:32)
[2020-05-13] MEDS ORDERED: DULO20CA27 PO (18:32)
[2020-05-13] MEDS ORDERED: LURA80TA2 PO (18:32)
[2020-05-13] MEDS ORDERED: NALT50TA PO (18:32)
[2020-05-13] MEDS: ZOLPIDEM TARTRATE 10 MG TABLET PO SCH (20:44)
[2020-05-13] MEDS: DIVALPROEX SODIUM 500 MG ER TABLET PO SCH (20:44)
[2020-05-13] MEDS: MIRTAZAPINE 30 MG TABLET PO SCH (20:45)
[2020-05-14] MEDS ORDERED: FURO-152 PO ×2 (03:09→03:22)
[2020-05-14] MEDS ORDERED: POTA8CAP20 PO ×2 (03:12→03:21)
[2020-05-14] MEDS: LURASIDONE HCL 80 MG TABLET PO SCH (06:39)
[2020-05-14] MEDS: GABAPENTIN 400 MG CAPSULE PO SCH (09:00)
[2020-05-14] MEDS: DULoxetine HCL 20 MG CAPSULE PO SCH (09:00)
[2020-05-14] MEDS: MULTIVITAMINS WITH MINERALS, THERAPEUTIC TABLET PO SCH (09:00)
[2020-05-14] MEDS: POTASSIUM CHLORIDE 8 MEQ ER TABLET PO SCH (09:00)
[2020-05-14] MEDS: FUROSEMIDE 20 MG TABLET PO SCH (09:00)
[2020-05-14] MEDS: NALTREXONE HCL 50 MG TABLET PO SCH (09:00)
== END 2020-05-14 09:00 | disposition home or self-care (01) | DRG 750 ==
LOC: EMS 02:06 → 3EI 03:35
PROVIDERS: ADMIT Psychiatry & Neurology Psychiatry; ATTEND Psychiatry & Neurology Psychiatry
DX: F25.0 Schizoaffective disorder, bipolar type (principal); R45.851 Suicidal ideations; J45.909 Unspecified asthma, uncomplicated; F43.10 Post-traumatic stress disorder, unspecified; F17.210 Nicotine dependence, cigarettes, uncomplicated; E87.6 Hypokalemia; D64.9 Anemia, unspecified; Z91.19 Patient's noncompliance with other medical treatment and regimen; Z86.73 Personal history of transient ischemic attack (TIA), and cerebral infarction without residual deficits; Z79.899 Other long term (current) drug therapy; Z20.828 Contact with and (suspected) exposure to other viral communicable diseases
CPT/HCPCS: 80074; 80307; 83036; 84439; 84443; 84550; 85651; 86140; 86592; 97110; 97112; 97116; 97162; 97165; 97530; 97535; G0480; J3420

== ENCOUNTER 2020-05-14 13:11 | Inpatient (IN) | payer MEDICAID ==
[~2020-05-14] VITALS: Ht 167.6 cm; Wt 159.0 kg
[~2020-05-14 13:11] MED LIST changes: +DULO20CA27 PO; +FURO-152 PO; +LURA80TA2 PO; +MIRT30 PO; +POTA8CAP20 PO
[2020-05-14 14:03] LABS: BASOPHILS % (AUTO) 0.6 % (0.0-2.0); EOSINOPHILS % (AUTO) 1.9 % (1.0-6.0); HEMATOCRIT 32.7 % (36-46); HEMOGLOBIN 10.6 g/dL (12.0-16.0); LYMPHOCYTES # (AUTO) 1.2 K/uL (1.0-4.8); LYMPHOCYTES % (AUTO) 20.7 % (22.0-44.0); MEAN CORPUSCULAR HEMOGLOBIN 25.4 pg (26.0-34.0); MEAN CORPUSCULAR HGB CONC 32.4 G/dL (31.0-37.0); MEAN CORPUSCULAR VOLUME 78 fL (80-100); MONOCYTES # (AUTO) 0.4 K/uL (0.1-1.0); NEUTROPHILS # (AUTO) 4.1 K/uL (1.8-7.7); NEUTROPHILS % (AUTO) 69.8 % (40.0-70.0); PLATELET COUNT (AUTO) 179 K/uL (150-450); RED BLOOD CELL COUNT(AUTO) 4.17 MIL/uL (4.00-5.20); RED CELL DISTRIBUTION WIDTH 19.1 % (11.5-14.5)
[2020-05-14 14:14] LABS: ANION GAP 3 mmol/L (8-16); CALCIUM, TOTAL 8.7 mg/dL (8.8-10.5); CARBON DIOXIDE 31 mmol/L (22-29); CHLORIDE 102 mmol/L (98-107); CREATININE 0.95 mg/dL (0.60-1.30); GLOMERULAR FILTR. RATE CALC > 60 mL/min (>60); GLUCOSE,RANDOM 108 mg/dL (70-110); POTASSIUM 4.5 mmol/L (3.5-5.1); SODIUM SERUM 136 mmol/L (136-145); UREA NITROGEN, BLOOD 15 mg/dL (7-18)
[2020-05-14 14:24] LABS: ALANINE AMINOTRANSFERASE 22 U/L (12-78); ALKALINE PHOSPHATASE 69 U/L (46-116); ASPARTATE AMINOTRANSFERASE 12 U/L (15-37); BILIRUBIN,TOTAL 0.1 mg/dL (0.1-1.0); TOTAL PROTEIN, SERUM 6.8 g/dL (6.4-8.2); VALPROIC ACID 43 mcg/mL (50-100)
[2020-05-14] MEDS ORDERED: LORazepam 2 MG TABLET PO PRN (14:45)
[2020-05-14] MEDS ORDERED: QUEtiapine FUMARATE 100 MG TABLET PO PRN (14:45)
[2020-05-14] MEDS ORDERED: PROMETHAZINE HCL 25 MG TABLET PO PRN (14:45)
[2020-05-14] MEDS ORDERED: MAG HYDROX/AL HYDROX/SIMETH ES 30 ML SUSPENSION UDCUP PO PRN (14:45)
[2020-05-14] MEDS ORDERED: MAGNESIUM HYDROXIDE SUSPENSION 30 ML UDCUP PO PRN (14:45)
[2020-05-14] MEDS ORDERED: HydrOXYzine PAMOATE 50 MG CAPSULE PO PRN (14:45)
[2020-05-14] MEDS ORDERED: LOPERAMIDE HCL 2 MG CAPSULE PO PRN (14:45)
[2020-05-14] MEDS ORDERED: GuaiFENesin/D-METHORPHAN [SUGAR-FREE] 200-20MG/10 ML SYRUP UDCUP PO PRN (14:45)
[2020-05-14] MEDS ORDERED: ZOLPIDEM TARTRATE 10 MG TABLET PO PRN (14:45)
[2020-05-14] MEDS ORDERED: ACETAMINOPHEN 325 MG TABLET PO PRN (14:45)
[2020-05-14 17:27] VITALS: BP 118/60
[2020-05-14] MEDS: LURASIDONE HCL 80 MG TABLET PO SCH (17:54)
[2020-05-14] MEDS: GABAPENTIN 400 MG CAPSULE PO SCH ×2 (17:54→20:30)
[2020-05-14] MEDS: THIAMINE 100 MG TABLET PO SCH (17:54)
[2020-05-14] MEDS ORDERED: IBUPROFEN 600 MG TABLET PO PRN (19:15)
[2020-05-14] MEDS: DIVALPROEX SODIUM 500 MG ER TABLET PO SCH (20:30)
[2020-05-15 08:00] VITALS: BP 104/61
[2020-05-15] MEDS: DULoxetine HCL 20 MG CAPSULE PO SCH (09:00)
[2020-05-15] MEDS ORDERED: POTASSIUM CHLORIDE 20 MEQ ER TABLET PO SCH (09:00)
[2020-05-15] MEDS: NALTREXONE HCL 50 MG TABLET PO SCH (09:00)
[2020-05-15] MEDS: MULTIVITAMINS WITH MINERALS, THERAPEUTIC TABLET PO SCH (09:01)
[2020-05-15] MEDS: THIAMINE 100 MG TABLET PO SCH ×2 (09:01→16:49)
[2020-05-15] MEDS: GABAPENTIN 400 MG CAPSULE PO SCH ×4 (09:01→21:01)
[2020-05-15] MEDS: FOLIC ACID 1 MG TABLET PO SCH (09:01)
[2020-05-15] MEDS: FUROSEMIDE 20 MG TABLET PO SCH (09:01)
[2020-05-15] MEDS: POTASSIUM CHLORIDE 8 MEQ ER TABLET PO SCH (10:28)
[2020-05-15 16:33] VITALS: BP 126/81
[2020-05-15] MEDS: LURASIDONE HCL 80 MG TABLET PO SCH (17:30)
[2020-05-15] MEDS: DIVALPROEX SODIUM 500 MG ER TABLET PO SCH (21:01)
[2020-05-16 08:00] VITALS: BP 125/79
[2020-05-16] MEDS: THIAMINE 100 MG TABLET PO SCH ×2 (10:27→17:07)
[2020-05-16] MEDS: NALTREXONE HCL 50 MG TABLET PO SCH (10:27)
[2020-05-16] MEDS: DULoxetine HCL 20 MG CAPSULE PO SCH (10:27)
[2020-05-16] MEDS: FOLIC ACID 1 MG TABLET PO SCH (10:27)
[2020-05-16] MEDS: FUROSEMIDE 20 MG TABLET PO SCH (10:27)
[2020-05-16] MEDS: POTASSIUM CHLORIDE 8 MEQ ER TABLET PO SCH (10:27)
[2020-05-16] MEDS: GABAPENTIN 400 MG CAPSULE PO SCH ×4 (10:27→20:38)
[2020-05-16] MEDS: MULTIVITAMINS WITH MINERALS, THERAPEUTIC TABLET PO SCH (10:27)
[2020-05-16] MEDS: LURASIDONE HCL 80 MG TABLET PO SCH (17:07)
[2020-05-16 17:45] VITALS: BP 114/67
[2020-05-16] MEDS: DIVALPROEX SODIUM 500 MG ER TABLET PO SCH (20:38)
[2020-05-17 08:00] VITALS: BP 133/81
[2020-05-17] MEDS: FUROSEMIDE 20 MG TABLET PO SCH (09:54)
[2020-05-17] MEDS: THIAMINE 100 MG TABLET PO SCH ×2 (09:54→16:33)
[2020-05-17] MEDS: GABAPENTIN 400 MG CAPSULE PO SCH ×4 (09:54→20:36)
[2020-05-17] MEDS: NALTREXONE HCL 50 MG TABLET PO SCH (09:54)
[2020-05-17] MEDS: MULTIVITAMINS WITH MINERALS, THERAPEUTIC TABLET PO SCH (09:54)
[2020-05-17] MEDS: FOLIC ACID 1 MG TABLET PO SCH (09:54)
[2020-05-17] MEDS: POTASSIUM CHLORIDE 8 MEQ ER TABLET PO SCH (09:55)
[2020-05-17] MEDS: DULoxetine HCL 20 MG CAPSULE PO SCH (09:59)
[2020-05-17 17:00] VITALS: BP 124/74
[2020-05-17] MEDS: LURASIDONE HCL 80 MG TABLET PO SCH (17:47)
[2020-05-17] MEDS: DIVALPROEX SODIUM 500 MG ER TABLET PO SCH (20:36)
[2020-05-18 00:27] VITALS: BP 108/66
[2020-05-18] MEDS: FUROSEMIDE 20 MG TABLET PO SCH ×2 (08:00→10:25)
[2020-05-18 09:00] VITALS: BP 104/67
[2020-05-18] MEDS: DULoxetine HCL 20 MG CAPSULE PO SCH ×2 (09:00→10:25)
[2020-05-18] MEDS: FOLIC ACID 1 MG TABLET PO SCH ×2 (09:00→10:25)
[2020-05-18] MEDS: MULTIVITAMINS WITH MINERALS, THERAPEUTIC TABLET PO SCH ×2 (09:00→10:26)
[2020-05-18] MEDS: NALTREXONE HCL 50 MG TABLET PO SCH ×2 (09:00→10:25)
[2020-05-18] MEDS: GABAPENTIN 400 MG CAPSULE PO SCH ×5 (09:00→21:00)
[2020-05-18] MEDS: POTASSIUM CHLORIDE 8 MEQ ER TABLET PO SCH ×2 (09:00→10:25)
[2020-05-18] MEDS: THIAMINE 100 MG TABLET PO SCH ×3 (09:00→16:36)
[2020-05-18] MEDS: LURASIDONE HCL 80 MG TABLET PO SCH (16:36)
[2020-05-18 17:20] VITALS: BP 106/65
[2020-05-18] MEDS ORDERED: GABA-1201 PO (18:54)
[2020-05-18] MEDS ORDERED: LURA80TA2 PO (18:54)
[2020-05-18] MEDS ORDERED: DIVA-80 PO (18:54)
[2020-05-18] MEDS ORDERED: NALT50TA PO (18:54)
[2020-05-18] MEDS ORDERED: MIRT30 PO (18:57)
[2020-05-18] MEDS ORDERED: DULO20CA27 PO (18:57)
[2020-05-18] MEDS: DIVALPROEX SODIUM 500 MG ER TABLET PO SCH (21:00)
[2020-05-19 08:00] VITALS: BP 145/83
[2020-05-19] MEDS: FUROSEMIDE 20 MG TABLET PO SCH (08:00)
[2020-05-19] MEDS: NALTREXONE HCL 50 MG TABLET PO SCH (09:00)
[2020-05-19] MEDS: GABAPENTIN 400 MG CAPSULE PO SCH ×2 (09:00→09:12)
[2020-05-19] MEDS: MULTIVITAMINS WITH MINERALS, THERAPEUTIC TABLET PO SCH (09:00)
[2020-05-19] MEDS: FOLIC ACID 1 MG TABLET PO SCH (09:00)
[2020-05-19] MEDS: POTASSIUM CHLORIDE 8 MEQ ER TABLET PO SCH (09:00)
[2020-05-19] MEDS: DULoxetine HCL 20 MG CAPSULE PO SCH (09:00)
[2020-05-19] MEDS: THIAMINE 100 MG TABLET PO SCH (09:00)
[2020-05-19 10:20] VITALS: BP 145/83
[2020-05-19] MEDS ORDERED: FURO20 PO (15:16)
[2020-05-19] MEDS ORDERED: FOLI-130 PO (15:16)
[2020-05-19] MEDS ORDERED: MULT-1203 PO (15:17)
[2020-05-19] MEDS ORDERED: POTA8TAB71 PO (15:17)
[2020-05-19] MEDS ORDERED: THIA100T80 PO (15:18)
== END 2020-05-19 17:09 | disposition home or self-care (01) | DRG 750 ==
LOC: EMS 13:14 → 3EI 14:44
PROVIDERS: ADMIT Psychiatry & Neurology Psychiatry; ATTEND Psychiatry & Neurology Psychiatry
DX: F25.9 Schizoaffective disorder, unspecified (principal); R45.851 Suicidal ideations; Z62.810 Personal history of physical and sexual abuse in childhood; F43.10 Post-traumatic stress disorder, unspecified; J45.909 Unspecified asthma, uncomplicated; F17.200 Nicotine dependence, unspecified, uncomplicated; E87.6 Hypokalemia; D64.9 Anemia, unspecified; F31.9 Bipolar disorder, unspecified; F19.10 Other psychoactive substance abuse, uncomplicated; Z91.19 Patient's noncompliance with other medical treatment and regimen; F11.90 Opioid use, unspecified, uncomplicated; Z20.828 Contact with and (suspected) exposure to other viral communicable diseases
CPT/HCPCS: 87081; 87426; 97165; 97535; G0480

== ENCOUNTER 2020-05-26 11:53 | Inpatient (IN) | payer MEDICAID ==
[~2020-05-26] VITALS: Ht 175.3 cm; Wt 159.4 kg
[~2020-05-26 11:53] MED LIST changes: -FLUO-191 PO; +FOLI-130 PO; +MULT-1203 PO; -OLAN10TA22 PO; +THIA100T80 PO
[2020-05-26] MEDS ORDERED: PROMETHAZINE HCL 25 MG TABLET PO PRN (14:00)
[2020-05-26] MEDS ORDERED: LORazepam 2 MG TABLET PO PRN (14:00)
[2020-05-26] MEDS ORDERED: ZOLPIDEM TARTRATE 10 MG TABLET PO PRN (14:00)
[2020-05-26] MEDS ORDERED: MAGNESIUM HYDROXIDE SUSPENSION 30 ML UDCUP PO PRN (14:00)
[2020-05-26] MEDS ORDERED: ACETAMINOPHEN 325 MG TABLET PO PRN (14:00)
[2020-05-26] MEDS ORDERED: HydrOXYzine PAMOATE 50 MG CAPSULE PO PRN (14:00)
[2020-05-26] MEDS ORDERED: MAG HYDROX/AL HYDROX/SIMETH ES 30 ML SUSPENSION UDCUP PO PRN (14:00)
[2020-05-26] MEDS ORDERED: GuaiFENesin/D-METHORPHAN [SUGAR-FREE] 200-20MG/10 ML SYRUP UDCUP PO PRN (14:00)
[2020-05-26] MEDS ORDERED: OLANZapine 5 MG RAPDIS TABLET PO PRN (14:00)
[2020-05-26] MEDS ORDERED: LOPERAMIDE HCL 2 MG CAPSULE PO PRN (14:00)
[2020-05-26] MEDS ORDERED: LURASIDONE HCL 80 MG TABLET PO SCH (17:30)
[2020-05-26 20:35] VITALS: BP 135/80
[2020-05-26] MEDS: GABAPENTIN 400 MG CAPSULE PO SCH ×2 (21:00→21:32)
[2020-05-26] MEDS: THIAMINE 100 MG TABLET PO SCH (21:32)
[2020-05-27 00:36] VITALS: BP 115/63
[2020-05-27 07:49] LABS: BASOPHILS % (AUTO) 0.3 % (0.0-2.0); EOSINOPHILS % (AUTO) 4.3 % (1.0-6.0); HEMOGLOBIN 9.9 g/dL (12.0-16.0); LYMPHOCYTES # (AUTO) 1.6 K/uL (1.0-4.8); MEAN CORPUSCULAR HEMOGLOBIN 25.8 pg (26.0-34.0); MEAN CORPUSCULAR HGB CONC 32.9 G/dL (31.0-37.0); MEAN CORPUSCULAR VOLUME 79 fL (80-100); MONOCYTES # (AUTO) 0.3 K/uL (0.1-1.0); NEUTROPHILS # (AUTO) 2.8 K/uL (1.8-7.7); NEUTROPHILS % (AUTO) 55.4 % (40.0-70.0); PLATELET COUNT (AUTO) 172 K/uL (150-450); RED BLOOD CELL COUNT(AUTO) 3.82 MIL/uL (4.00-5.20); RED CELL DISTRIBUTION WIDTH 18.3 % (11.5-14.5)
[2020-05-27 08:10] LABS: ALANINE AMINOTRANSFERASE 23 U/L (12-78); ALBUMIN 2.8 g/dL (3.4-5.0); ALKALINE PHOSPHATASE 81 U/L (46-116); ANION GAP 5 mmol/L (8-16); ASPARTATE AMINOTRANSFERASE 13 U/L (15-37); BILIRUBIN,TOTAL 0.1 mg/dL (0.1-1.0); CALCIUM, TOTAL 8.3 mg/dL (8.8-10.5); CARBON DIOXIDE 28 mmol/L (22-29); CHLORIDE 105 mmol/L (98-107); CHOL/HDL RATIO 2.7 (3.9-5.7); CHOLESTEROL 138 mg/dL (131-200); CREATININE 0.88 mg/dL (0.60-1.30); GLOMERULAR FILTR. RATE CALC > 60 mL/min (>60); GLUCOSE,RANDOM 94 mg/dL (70-110); HCG,QUANTITATIVE < 1 mIU/mL (0-6); HDL CHOLESTEROL 52 mg/dL (40-60); LDL CHOL (CALC.) 68 mg/dL (0-130); SODIUM SERUM 138 mmol/L (136-145); TRIGLYCERIDES 89 mg/dL (15-150); UREA NITROGEN, BLOOD 12 mg/dL (7-18)
[2020-05-27 08:14] LABS: VALPROIC ACID < 3 mcg/mL (50-100)
[2020-05-27 08:32] VITALS: BP 108/60
[2020-05-27] MEDS: DIVALPROEX SODIUM 500 MG ER TABLET PO SCH (09:47)
[2020-05-27] MEDS: CEPHALEXIN MONOHYDRATE 500 MG CAPSULE PO SCH ×4 (09:47→20:20)
[2020-05-27] MEDS: MULTIVITAMINS WITH MINERALS, THERAPEUTIC TABLET PO SCH (09:47)
[2020-05-27] MEDS: NALTREXONE HCL 50 MG TABLET PO SCH (09:47)
[2020-05-27] MEDS: OMEGA-3/DHA/EPA/FISH OIL 1,000 MG CAPSULE PO SCH (09:47)
[2020-05-27] MEDS: THIAMINE 100 MG TABLET PO SCH ×2 (09:47→17:00)
[2020-05-27] MEDS: FOLIC ACID 1 MG TABLET PO SCH (09:47)
[2020-05-27] MEDS: DULoxetine HCL 60 MG CAPSULE PO SCH (09:47)
[2020-05-27] MEDS: GABAPENTIN 400 MG CAPSULE PO SCH ×4 (09:47→20:20)
[2020-05-27] MEDS ORDERED: PNEUMOCOCCAL VACCINE POLYVALENT 0.5 ML VIAL [PPSV23] IM ONE (11:45)
[2020-05-27 16:11] VITALS: BP 102/60
[2020-05-28 01:31] VITALS: BP 125/91
[2020-05-28 08:09] VITALS: BP 140/103
[2020-05-28] MEDS: DIVALPROEX SODIUM 500 MG ER TABLET PO SCH (08:28)
[2020-05-28] MEDS: THIAMINE 100 MG TABLET PO SCH ×2 (08:28→16:57)
[2020-05-28] MEDS: CEPHALEXIN MONOHYDRATE 500 MG CAPSULE PO SCH ×4 (08:28→20:08)
[2020-05-28] MEDS: OMEGA-3/DHA/EPA/FISH OIL 1,000 MG CAPSULE PO SCH (08:28)
[2020-05-28] MEDS: FOLIC ACID 1 MG TABLET PO SCH (08:28)
[2020-05-28] MEDS: DULoxetine HCL 60 MG CAPSULE PO SCH (08:28)
[2020-05-28] MEDS: MULTIVITAMINS WITH MINERALS, THERAPEUTIC TABLET PO SCH (08:28)
[2020-05-28] MEDS: NALTREXONE HCL 50 MG TABLET PO SCH (08:28)
[2020-05-28] MEDS: GABAPENTIN 400 MG CAPSULE PO SCH ×4 (08:29→20:08)
[2020-05-28 13:00] VITALS: BP 142/90
[2020-05-28] MEDS ORDERED: GABA-1201 PO (15:23)
[2020-05-28] MEDS ORDERED: OMEG-135 PO (15:23)
[2020-05-28] MEDS ORDERED: NALT50TA PO (15:23)
[2020-05-28] MEDS ORDERED: DIVA-112 PO (15:23)
[2020-05-28] MEDS ORDERED: ARIP15TA2 PO (15:23)
[2020-05-28] MEDS ORDERED: VENL-67 PO (15:23)
[2020-05-28 17:27] VITALS: BP 121/87
[2020-05-28] MEDS ORDERED: DIVALPROEX SODIUM 500 MG DR TABLET PO SCH (21:00)
[2020-05-29 03:20] VITALS: BP 142/94
[2020-05-29] MEDS ORDERED: CEPH250S35 PO (07:41)
[2020-05-29] MEDS ORDERED: CEPH-582 PO (07:41)
[2020-05-29] MEDS ORDERED: VENL-67 PO (07:45)
[2020-05-29] MEDS ORDERED: ARIP15TA2 PO ×2 (07:46→07:47)
[2020-05-29] MEDS: CEPHALEXIN MONOHYDRATE 500 MG CAPSULE PO SCH ×2 (08:36→12:36)
[2020-05-29] MEDS: NALTREXONE HCL 50 MG TABLET PO SCH (08:36)
[2020-05-29] MEDS: GABAPENTIN 400 MG CAPSULE PO SCH ×2 (08:37→12:36)
[2020-05-29] MEDS: OMEGA-3/DHA/EPA/FISH OIL 1,000 MG CAPSULE PO SCH (08:37)
[2020-05-29] MEDS: FOLIC ACID 1 MG TABLET PO SCH (08:37)
[2020-05-29] MEDS: MULTIVITAMINS WITH MINERALS, THERAPEUTIC TABLET PO SCH (08:37)
[2020-05-29] MEDS: THIAMINE 100 MG TABLET PO SCH (08:37)
[2020-05-29 08:42] VITALS: BP 127/71
[2020-05-29] MEDS ORDERED: VENLAFAXINE HCL 75 MG ER CAPSULE PO SCH (09:00)
[2020-05-29] MEDS ORDERED: ARIPiprazole 15 MG TABLET PO SCH (09:00)
== END 2020-05-29 13:15 | disposition home or self-care (01) | DRG 750 ==
LOC: B3A 20:04 → B2S 22:37
PROVIDERS: ADMIT Psychiatry & Neurology Psychiatry; ATTEND Psychiatry & Neurology Psychiatry
DX: F25.9 Schizoaffective disorder, unspecified (principal); D64.9 Anemia, unspecified; I10 Essential (primary) hypertension; J45.909 Unspecified asthma, uncomplicated; R45.851 Suicidal ideations; Z55.9 Problems related to education and literacy, unspecified; E87.6 Hypokalemia
CPT/HCPCS: 87081

== ENCOUNTER 2020-07-20 05:15 | Emergency (ER) | payer MEDICAID ==
[~2020-07-20] VITALS: Ht 175.3 cm; Wt 163.6 kg
[~2020-07-20 05:15] MED LIST changes: +ARIP15TA2 PO; +CEPH-582 PO; -DULO20CA27 PO; -FOLI-130 PO; -FURO-152 PO; -LURA80TA2 PO; -MIRT30 PO; -MULT-1203 PO; -POTA8CAP20 PO; -THIA100T80 PO; +VENL-67 PO
[2020-07-20] MEDS ORDERED: ACETAMINOPHEN 500 MG TABLET PO ONE (06:30)
[2020-07-20] MEDS ORDERED: KETOROLAC TROMETHAMINE 30 MG/ML VIAL IM ONE (06:30)
[2020-07-20 06:58] LABS: BASOPHILS % (AUTO) 0.4 % (0.0-2.0); EOSINOPHILS % (AUTO) 2.5 % (1.0-6.0); HEMATOCRIT 34.4 % (36-46); HEMOGLOBIN 11.2 g/dL (12.0-16.0); LYMPHOCYTES # (AUTO) 1.4 K/uL (1.0-4.8); LYMPHOCYTES % (AUTO) 25.5 % (22.0-44.0); MEAN CORPUSCULAR HEMOGLOBIN 25.7 pg (26.0-34.0); MEAN CORPUSCULAR HGB CONC 32.5 G/dL (31.0-37.0); MEAN CORPUSCULAR VOLUME 79 fL (80-100); MONOCYTES # (AUTO) 0.4 K/uL (0.1-1.0); MONOCYTES % (AUTO) 6.8 % (2.0-9.0); NEUTROPHILS # (AUTO) 3.6 K/uL (1.8-7.7); NEUTROPHILS % (AUTO) 64.8 % (40.0-70.0); PLATELET COUNT (AUTO) 220 K/uL (150-450); RED BLOOD CELL COUNT(AUTO) 4.35 MIL/uL (4.00-5.20); RED CELL DISTRIBUTION WIDTH 16.4 % (11.5-14.5)
[2020-07-20 07:15] LABS: ANION GAP 5 mmol/L (8-16); CALCIUM, TOTAL 9.2 mg/dL (8.8-10.5); CARBON DIOXIDE 27 mmol/L (22-29); CHLORIDE 104 mmol/L (98-107); CREATININE 0.76 mg/dL (0.60-1.30); GLOMERULAR FILTR. RATE CALC > 60 mL/min (>60); GLUCOSE,RANDOM 84 mg/dL (70-110); POTASSIUM 3.3 mmol/L (3.5-5.1); SODIUM SERUM 136 mmol/L (136-145); UREA NITROGEN, BLOOD 7 mg/dL (7-18)
[2020-07-20] MEDS ORDERED: POTASSIUM CHLORIDE 20 MEQ ER TABLET PO ONE (07:30)
[2020-07-20 07:45] LABS: ALANINE AMINOTRANSFERASE 35 U/L (12-78); ALBUMIN 3.7 g/dL (3.4-5.0); ALKALINE PHOSPHATASE 91 U/L (46-116); ASPARTATE AMINOTRANSFERASE 39 U/L (15-37); BILIRUBIN,TOTAL 0.6 mg/dL (0.1-1.0); C-REACTIVE PROTEIN QUANT 1.56 mg/dL (0.00-0.30); CREATINE KINASE, TOTAL ONLY 521 U/L (26-192); HCG,QUANTITATIVE 1 mIU/mL (0-6); TOTAL PROTEIN, SERUM 7.6 g/dL (6.4-8.2)
[2020-07-20 08:12] LABS: ERYTHROCYTE SEDIMENTATION RATE 25 MM/HR (0-20)
[2020-07-20] MEDS ORDERED: PredniSONE 20 MG TABLET PO ONE (08:15)
[2020-07-20 08:48] LABS: APPEARANCE,URINE CLOUDY (CLEAR); GLUCOSE, URINE (UA) NEGATIVE (NEGATIVE); KETONES,URINE TRACE mg/dL (NEGATIVE); LEUKOCYTE ESTERASE ,URINE MODERATE (NEGATIVE); NITRATE,URINE NEGATIVE (NEGATIVE); OCCULT BLOOD,URINE NEGATIVE (NEGATIVE); PH,URINE 5.5 (5.0-8.0); PROTEIN,URINE POS 1+ (NEGATIVE)
[2020-07-20 08:54] LABS: AMPHET/METH SCREEN,URINE POSITIVE (NEGATIVE); BARBITURATE SCREEN, URINE NEGATIVE (NEGATIVE); BENZODIAZEPINES SCREEN,URINE NEGATIVE (NEGATIVE); CANNABINOID SCREEN,URINE POSITIVE (NEGATIVE); COCAINE SCREEN,URINE NEGATIVE (NEGATIVE); METHADONE SCREEN, URINE NEGATIVE (NEGATIVE); OPIATE SCREEN,URINE POSITIVE (NEGATIVE)
[2020-07-20 08:55] LABS: PHENCYCLIDINE SCREEN,URINE POSITIVE (NEGATIVE)
[2020-07-20 09:13] LABS: BILIRUBIN,URINE PRELIM. POSITIVE (NEGATIVE)
[2020-07-20 09:24] LABS: BACTERIA,URINE None Seen /HPF (None Seen); RBC,URINE None Seen /HPF (0-2); SQUAMOUS EPITHELIAL CELL,UR Few /LPF (None Seen)
[2020-07-20 10:11] VITALS: BP 140/76
== END 2020-07-20 10:30 | disposition home or self-care (01) ==
LOC: EMS 05:15
DX: M25.461 Effusion, right knee (principal); E87.6 Hypokalemia; N39.0 Urinary tract infection, site not specified; F11.10 Opioid abuse, uncomplicated; F12.10 Cannabis abuse, uncomplicated; F15.10 Other stimulant abuse, uncomplicated; F31.9 Bipolar disorder, unspecified; J45.909 Unspecified asthma, uncomplicated; F17.210 Nicotine dependence, cigarettes, uncomplicated; Z79.899 Other long term (current) drug therapy
CPT/HCPCS: 36415; 73564; 80053; 80307; 81001; 82550; 84702; 85025; 85651; 86140; 87086; 93971; 96372; 99285; J1885; J7512

== ENCOUNTER 2020-07-21 13:22 | Inpatient (IN) | payer MEDICAID ==
[2020-07-21] MEDS ORDERED: PALIPERIDONE PALMITATE 234 MG/1.5 ML SYRINGE IM ONE (13:45)
[2020-07-21] MEDS ORDERED: HydrOXYzine PAMOATE 50 MG CAPSULE PO PRN (13:45)
[2020-07-21] MEDS ORDERED: LOPERAMIDE HCL 2 MG CAPSULE PO PRN (13:45)
[2020-07-21] MEDS ORDERED: OLANZapine 5 MG RAPDIS TABLET PO PRN (13:45)
[2020-07-21] MEDS ORDERED: MAGNESIUM HYDROXIDE SUSPENSION 30 ML UDCUP PO PRN (13:45)
[2020-07-21] MEDS ORDERED: GuaiFENesin/D-METHORPHAN [SUGAR-FREE] 200-20MG/10 ML SYRUP UDCUP PO PRN (13:45)
[2020-07-21] MEDS ORDERED: PROMETHAZINE HCL 25 MG TABLET PO PRN (13:45)
[2020-07-21] MEDS ORDERED: LORazepam 2 MG TABLET PO PRN (13:45)
[2020-07-21] MEDS ORDERED: ZOLPIDEM TARTRATE 10 MG TABLET PO PRN (13:45)
[2020-07-21] MEDS ORDERED: MAG HYDROX/AL HYDROX/SIMETH ES 30 ML SUSPENSION UDCUP PO PRN (13:45)
[2020-07-21 18:20] VITALS: BP 127/71
[2020-07-21] MEDS ORDERED: INFLUENZA VIRUS VACCINE QVS 2020-21 (6MO+)/PF 60 MCG/0.5 ML SYRINGE IM ONE (19:30)
[2020-07-21] MEDS ORDERED: PNEUMOCOCCAL VACCINE POLYVALENT 0.5 ML VIAL [PPSV23] IM ONE (19:30)
[2020-07-21] MEDS: THIAMINE 100 MG TABLET PO SCH (20:27)
[2020-07-21] MEDS: DIVALPROEX SODIUM 500 MG ER TABLET PO SCH (20:27)
[2020-07-22 01:10] VITALS: BP 119/68
[2020-07-22 08:00] VITALS: BP 108/63
[2020-07-22] MEDS: THIAMINE 100 MG TABLET PO SCH ×2 (08:35→17:02)
[2020-07-22] MEDS: OMEGA-3/DHA/EPA/FISH OIL 1,000 MG CAPSULE PO SCH (08:35)
[2020-07-22] MEDS: FOLIC ACID 1 MG TABLET PO SCH (08:35)
[2020-07-22] MEDS: NALTREXONE HCL 50 MG TABLET PO SCH (08:35)
[2020-07-22] MEDS: MULTIVITAMINS WITH MINERALS, THERAPEUTIC TABLET PO SCH (08:35)
[2020-07-22] MEDS: ARIPiprazole 15 MG TABLET PO SCH (08:35)
[2020-07-22] MEDS: VENLAFAXINE HCL 37.5 MG ER CAPSULE PO SCH (11:24)
[2020-07-22] MEDS ORDERED: POTASSIUM CHLORIDE 20 MEQ ER TABLET PO ONE (13:15)
[2020-07-22 16:01] VITALS: BP 119/72
[2020-07-22] MEDS: DIVALPROEX SODIUM 500 MG ER TABLET PO SCH (20:09)
[2020-07-23 08:03] VITALS: BP 139/81
[2020-07-23] MEDS: NALTREXONE HCL 50 MG TABLET PO SCH (08:11)
[2020-07-23] MEDS: VENLAFAXINE HCL 37.5 MG ER CAPSULE PO SCH (08:11)
[2020-07-23] MEDS: ARIPiprazole 15 MG TABLET PO SCH (08:11)
[2020-07-23] MEDS: FOLIC ACID 1 MG TABLET PO SCH (08:12)
[2020-07-23] MEDS: OMEGA-3/DHA/EPA/FISH OIL 1,000 MG CAPSULE PO SCH (08:12)
[2020-07-23] MEDS: THIAMINE 100 MG TABLET PO SCH ×2 (08:12→16:54)
[2020-07-23] MEDS: MULTIVITAMINS WITH MINERALS, THERAPEUTIC TABLET PO SCH (08:12)
[2020-07-23] MEDS: ACETAMINOPHEN 325 MG TABLET PO PRN (12:07)
[2020-07-23 16:16] VITALS: BP 130/66
[2020-07-23] MEDS: GABAPENTIN 300 MG CAPSULE PO SCH ×2 (16:54→20:08)
[2020-07-23] MEDS: LEVOFLOXACIN 500 MG TABLET PO SCH (16:54)
[2020-07-23] MEDS: AMOX TR/POT CLAV 875 MG/125 MG TABLET PO SCH (16:54)
[2020-07-23] MEDS: DIVALPROEX SODIUM 500 MG ER TABLET PO SCH (20:08)
[2020-07-24 06:03] VITALS: BP 124/75
[2020-07-24] MEDS: LEVOFLOXACIN 500 MG TABLET PO SCH (08:42)
[2020-07-24] MEDS: ARIPiprazole 15 MG TABLET PO SCH (08:42)
[2020-07-24] MEDS: GABAPENTIN 300 MG CAPSULE PO SCH ×4 (08:42→20:34)
[2020-07-24] MEDS: VENLAFAXINE HCL 37.5 MG ER CAPSULE PO SCH (08:42)
[2020-07-24] MEDS: AMOX TR/POT CLAV 875 MG/125 MG TABLET PO SCH ×2 (08:42→16:35)
[2020-07-24] MEDS: NALTREXONE HCL 50 MG TABLET PO SCH (08:42)
[2020-07-24] MEDS: MULTIVITAMINS WITH MINERALS, THERAPEUTIC TABLET PO SCH (08:42)
[2020-07-24] MEDS: OMEGA-3/DHA/EPA/FISH OIL 1,000 MG CAPSULE PO SCH (08:43)
[2020-07-24] MEDS: THIAMINE 100 MG TABLET PO SCH ×2 (08:43→16:35)
[2020-07-24] MEDS: FOLIC ACID 1 MG TABLET PO SCH (08:43)
[2020-07-24 08:46] VITALS: BP 129/78
[2020-07-24] MEDS ORDERED: DULoxetine HCL 20 MG CAPSULE PO SCH (09:00)
[2020-07-24 15:44] VITALS: BP 133/96
[2020-07-24 16:14] VITALS: BP 133/96
[2020-07-24] MEDS: DIVALPROEX SODIUM 500 MG ER TABLET PO SCH (20:34)
[2020-07-25 06:09] VITALS: BP 137/80
[2020-07-25 08:06] LABS: CHOL/HDL RATIO 2.5 (3.9-5.7)
[2020-07-25 08:17] LABS: FREE T4 (FREE THYROXINE) 0.96 ng/dL (0.76-1.46); THYROID STIMULATING HORMONE 0.38 uIU/mL (0.36-3.74)
[2020-07-25 08:27] VITALS: BP 126/66
[2020-07-25] MEDS: THIAMINE 100 MG TABLET PO SCH ×2 (08:49→16:31)
[2020-07-25] MEDS: LEVOFLOXACIN 500 MG TABLET PO SCH (08:49)
[2020-07-25] MEDS: DULoxetine HCL 30 MG CAPSULE PO SCH (08:49)
[2020-07-25] MEDS: OMEGA-3/DHA/EPA/FISH OIL 1,000 MG CAPSULE PO SCH (08:49)
[2020-07-25] MEDS: AMOX TR/POT CLAV 875 MG/125 MG TABLET PO SCH ×2 (08:49→16:31)
[2020-07-25] MEDS: GABAPENTIN 300 MG CAPSULE PO SCH ×4 (08:49→20:27)
[2020-07-25] MEDS: ARIPiprazole 10 MG TABLET PO SCH (08:49)
[2020-07-25] MEDS: FOLIC ACID 1 MG TABLET PO SCH (08:49)
[2020-07-25] MEDS: MULTIVITAMINS WITH MINERALS, THERAPEUTIC TABLET PO SCH (08:49)
[2020-07-25] MEDS: NALTREXONE HCL 50 MG TABLET PO SCH (08:49)
[2020-07-25] MEDS ORDERED: PALIPERIDONE PALMITATE 156 MG/ML SYRINGE IM ONE (09:00)
[2020-07-25 16:03] VITALS: BP 117/77
[2020-07-25] MEDS: DIVALPROEX SODIUM 500 MG ER TABLET PO SCH (20:27)
[2020-07-26 05:31] VITALS: BP 123/77
[2020-07-26 08:18] VITALS: BP 107/68
[2020-07-26] MEDS: MULTIVITAMINS WITH MINERALS, THERAPEUTIC TABLET PO SCH (08:54)
[2020-07-26] MEDS: GABAPENTIN 300 MG CAPSULE PO SCH ×4 (08:54→20:10)
[2020-07-26] MEDS: NALTREXONE HCL 50 MG TABLET PO SCH (08:54)
[2020-07-26] MEDS: LEVOFLOXACIN 500 MG TABLET PO SCH (08:54)
[2020-07-26] MEDS: FOLIC ACID 1 MG TABLET PO SCH (08:54)
[2020-07-26] MEDS: DULoxetine HCL 30 MG CAPSULE PO SCH (08:54)
[2020-07-26] MEDS: ARIPiprazole 10 MG TABLET PO SCH (08:54)
[2020-07-26] MEDS: AMOX TR/POT CLAV 875 MG/125 MG TABLET PO SCH ×2 (08:54→16:52)
[2020-07-26] MEDS: OMEGA-3/DHA/EPA/FISH OIL 1,000 MG CAPSULE PO SCH (08:54)
[2020-07-26] MEDS: THIAMINE 100 MG TABLET PO SCH ×2 (08:55→16:52)
[2020-07-26] MEDS: ACETAMINOPHEN 325 MG TABLET PO PRN (11:47)
[2020-07-26 16:07] VITALS: BP 105/74
[2020-07-26] MEDS: DIVALPROEX SODIUM 500 MG ER TABLET PO SCH (20:09)
[2020-07-27 06:19] VITALS: BP 118/75
[2020-07-27] MEDS: THIAMINE 100 MG TABLET PO SCH ×2 (09:06→16:20)
[2020-07-27] MEDS: GABAPENTIN 300 MG CAPSULE PO SCH ×3 (09:06→16:20)
[2020-07-27] MEDS: OMEGA-3/DHA/EPA/FISH OIL 1,000 MG CAPSULE PO SCH (09:06)
[2020-07-27] MEDS: MULTIVITAMINS WITH MINERALS, THERAPEUTIC TABLET PO SCH (09:06)
[2020-07-27] MEDS: NALTREXONE HCL 50 MG TABLET PO SCH (09:07)
[2020-07-27] MEDS: FOLIC ACID 1 MG TABLET PO SCH (09:07)
[2020-07-27] MEDS: LEVOFLOXACIN 500 MG TABLET PO SCH (09:07)
[2020-07-27] MEDS: DULoxetine HCL 30 MG CAPSULE PO SCH (09:07)
[2020-07-27] MEDS: AMOX TR/POT CLAV 875 MG/125 MG TABLET PO SCH ×2 (09:07→16:19)
[2020-07-27] MEDS: ARIPiprazole 10 MG TABLET PO SCH (09:07)
[2020-07-27 15:13] VITALS: BP 122/68
[2020-07-27 16:33] VITALS: BP 120/70
[2020-07-27] MEDS: GABAPENTIN 400 MG CAPSULE PO SCH (20:26)
[2020-07-27] MEDS: DIVALPROEX SODIUM 500 MG ER TABLET PO SCH (20:26)
[2020-07-28] VITALS: BP 118/67
[2020-07-28 08:17] VITALS: BP 105/65
[2020-07-28] MEDS: OMEGA-3/DHA/EPA/FISH OIL 1,000 MG CAPSULE PO SCH (08:28)
[2020-07-28] MEDS: GABAPENTIN 400 MG CAPSULE PO SCH ×3 (08:28→16:13)
[2020-07-28] MEDS: NALTREXONE HCL 50 MG TABLET PO SCH (08:28)
[2020-07-28] MEDS: THIAMINE 100 MG TABLET PO SCH ×2 (08:29→16:13)
[2020-07-28] MEDS: LEVOFLOXACIN 500 MG TABLET PO SCH (08:29)
[2020-07-28] MEDS: ARIPiprazole 10 MG TABLET PO SCH (08:29)
[2020-07-28] MEDS: AMOX TR/POT CLAV 875 MG/125 MG TABLET PO SCH (08:29)
[2020-07-28] MEDS: FOLIC ACID 1 MG TABLET PO SCH (08:29)
[2020-07-28] MEDS ORDERED: DULoxetine HCL 20 MG CAPSULE PO SCH (09:00)
[2020-07-28] MEDS: MULTIVITAMINS WITH MINERALS, THERAPEUTIC TABLET PO SCH (09:49)
[2020-07-28] MEDS: ACETAMINOPHEN 325 MG TABLET PO PRN (15:52)
[2020-07-28 17:23] VITALS: BP 114/68
[2020-07-28] MEDS: GABAPENTIN 300 MG CAPSULE PO SCH (20:12)
[2020-07-28] MEDS: DIVALPROEX SODIUM 500 MG ER TABLET PO SCH (20:12)
[2020-07-29 00:01] VITALS: BP 119/73
[2020-07-29 08:17] VITALS: BP 107/62
[2020-07-29] MEDS: MULTIVITAMINS WITH MINERALS, THERAPEUTIC TABLET PO SCH (09:01)
[2020-07-29] MEDS: THIAMINE 100 MG TABLET PO SCH ×2 (09:01→16:23)
[2020-07-29] MEDS: OMEGA-3/DHA/EPA/FISH OIL 1,000 MG CAPSULE PO SCH (09:01)
[2020-07-29] MEDS: FOLIC ACID 1 MG TABLET PO SCH (09:01)
[2020-07-29] MEDS: DULoxetine HCL 60 MG CAPSULE PO SCH (09:01)
[2020-07-29] MEDS: GABAPENTIN 300 MG CAPSULE PO SCH ×4 (09:01→20:19)
[2020-07-29] MEDS: NALTREXONE HCL 50 MG TABLET PO SCH (09:01)
[2020-07-29] MEDS: ARIPiprazole 10 MG TABLET PO SCH (09:01)
[2020-07-29 17:21] VITALS: BP 128/69
[2020-07-29] MEDS: DIVALPROEX SODIUM 500 MG ER TABLET PO SCH (20:19)
[2020-07-30 00:48] VITALS: BP 120/70
[2020-07-30] MEDS: ARIPiprazole 10 MG TABLET PO SCH (08:02)
[2020-07-30] MEDS: NALTREXONE HCL 50 MG TABLET PO SCH (08:03)
[2020-07-30] MEDS: GABAPENTIN 300 MG CAPSULE PO SCH ×4 (08:03→16:27)
[2020-07-30] MEDS: THIAMINE 100 MG TABLET PO SCH ×2 (08:03→16:26)
[2020-07-30] MEDS: OMEGA-3/DHA/EPA/FISH OIL 1,000 MG CAPSULE PO SCH (08:03)
[2020-07-30] MEDS: FOLIC ACID 1 MG TABLET PO SCH (08:03)
[2020-07-30] MEDS: MULTIVITAMINS WITH MINERALS, THERAPEUTIC TABLET PO SCH (08:03)
[2020-07-30 08:04] VITALS: BP 104/65
[2020-07-30] MEDS: DULoxetine HCL 60 MG CAPSULE PO SCH (08:04)
[2020-07-30] MEDS ORDERED: GABA-1181 PO (14:49)
[2020-07-30] MEDS ORDERED: ARIP10TA8 PO (14:49)
[2020-07-30] MEDS ORDERED: DULO-8 PO (14:49)
[2020-07-30] MEDS ORDERED: NALT50TA PO (14:49)
[2020-07-30] MEDS ORDERED: DIVA-80 PO (14:49)
[2020-07-30] MEDS ORDERED: OMEG-135 PO (14:49)
[2020-07-30 16:12] VITALS: BP 130/78
== END 2020-07-30 17:34 | disposition home or self-care (01) | DRG 750 ==
LOC: B2S 17:58
PROVIDERS: ADMIT Psychiatry & Neurology Psychiatry; ATTEND Psychiatry & Neurology Psychiatry
DX: F25.0 Schizoaffective disorder, bipolar type (principal); Z59.0 Homelessness; F43.10 Post-traumatic stress disorder, unspecified; G47.9 Sleep disorder, unspecified; I10 Essential (primary) hypertension; J44.9 Chronic obstructive pulmonary disease, unspecified; E66.01 Morbid (severe) obesity due to excess calories; F17.200 Nicotine dependence, unspecified, uncomplicated; F19.10 Other psychoactive substance abuse, uncomplicated; G93.40 Encephalopathy, unspecified; E87.6 Hypokalemia; M19.90 Unspecified osteoarthritis, unspecified site; Z28.21 Immunization not carried out because of patient refusal
CPT/HCPCS: 84439; 84443; 90686; 90732

== ENCOUNTER 2020-12-24 14:18 | Inpatient (IN) | payer MEDICAID ==
[~2020-12-24] VITALS: Ht 175.3 cm; Wt 100.8 kg
[~2020-12-24 14:18] MED LIST changes: +ARIP10TA38 PO; -ARIP15TA2 PO; -CEPH-582 PO; +DULO-8 PO; +GABA-1181 PO; -GABA-1201 PO; +OMEG-135 PO; -VENL-67 PO
[2020-12-24] MEDS ORDERED: ZOLPIDEM TARTRATE 10 MG TABLET PO PRN (17:00)
[2020-12-24] MEDS ORDERED: HALOPERIDOL 5 MG TABLET PO PRN (17:00)
[2020-12-24] MEDS ORDERED: PNEUMOCOCCAL VACCINE POLYVALENT 0.5 ML VIAL [PPSV23] IM. ONE (17:00)
[2020-12-24 17:41] VITALS: BP 113/67
[2020-12-24] MEDS: LORazepam 2 MG TABLET PO PRN (17:42)
[2020-12-24 17:49] VITALS: BP 113/67
[2020-12-24 18:40] VITALS: BP 112/68
[2020-12-24 19:41] VITALS: BP 134/78
[2020-12-24] MEDS: DIVALPROEX SODIUM 500 MG ER TABLET PO SCH (20:34)
[2020-12-24] MEDS: GABAPENTIN 300 MG CAPSULE PO SCH (20:35)
[2020-12-24 20:41] VITALS: BP 122/70
[2020-12-24] MEDS ORDERED: ACETAMINOPHEN 325 MG TABLET PO PRN (22:45)
[2020-12-25] VITALS (9 sets, daily range): BP systolic 109–135; BP diastolic 61–87
[2020-12-25] MEDS: NALTREXONE HCL 50 MG TABLET PO SCH (08:36)
[2020-12-25] MEDS: DULoxetine HCL 60 MG CAPSULE PO SCH (08:36)
[2020-12-25] MEDS: GABAPENTIN 300 MG CAPSULE PO SCH ×5 (08:36→21:09)
[2020-12-25] MEDS: OMEGA-3/DHA/EPA/FISH OIL 1,000 MG CAPSULE PO SCH (08:36)
[2020-12-25] MEDS: ARIPiprazole 10 MG TABLET PO SCH (08:36)
[2020-12-25] MEDS: LORazepam 2 MG TABLET PO PRN (08:43)
[2020-12-25] MEDS: IBUPROFEN 600 MG TABLET PO PRN (12:02)
[2020-12-25] MEDS: DIVALPROEX SODIUM 500 MG ER TABLET PO SCH (20:24)
[2020-12-26 01:02] VITALS: BP 126/84
[2020-12-26 05:17] VITALS: BP 128/82
[2020-12-26 08:00] VITALS: BP 101/81
[2020-12-26 08:21] LABS: BASOPHILS % (AUTO) 0.9 % (0.0-2.0); EOSINOPHILS % (AUTO) 3.8 % (1.0-6.0); HEMATOCRIT 32.8 % (36-46); HEMOGLOBIN 10.4 g/dL (12.0-16.0); LYMPHOCYTES # (AUTO) 0.9 K/uL (1.0-4.8); LYMPHOCYTES % (AUTO) 14.9 % (22.0-44.0); MEAN CORPUSCULAR HEMOGLOBIN 24.3 pg (26.0-34.0); MEAN CORPUSCULAR HGB CONC 31.8 G/dL (31.0-37.0); MEAN CORPUSCULAR VOLUME 76 fL (80-100); MONOCYTES # (AUTO) 0.4 K/uL (0.1-1.0); MONOCYTES % (AUTO) 6.7 % (2.0-9.0); NEUTROPHILS # (AUTO) 4.4 K/uL (1.8-7.7); NEUTROPHILS % (AUTO) 73.7 % (40.0-70.0); PLATELET COUNT (AUTO) 197 K/uL (150-450); RED CELL DISTRIBUTION WIDTH 19.4 % (11.5-14.5)
[2020-12-26] MEDS: DULoxetine HCL 60 MG CAPSULE PO SCH (08:34)
[2020-12-26] MEDS: GABAPENTIN 300 MG CAPSULE PO SCH ×4 (08:34→20:26)
[2020-12-26] MEDS: NALTREXONE HCL 50 MG TABLET PO SCH (08:34)
[2020-12-26] MEDS: OMEGA-3/DHA/EPA/FISH OIL 1,000 MG CAPSULE PO SCH (08:34)
[2020-12-26] MEDS: LORazepam 2 MG TABLET PO PRN (08:35)
[2020-12-26] MEDS: ARIPiprazole 10 MG TABLET PO SCH (08:35)
[2020-12-26 08:46] LABS: HEMOGLOBIN A1C 5.2 % (3.8-5.6)
[2020-12-26 08:49] LABS: ALANINE AMINOTRANSFERASE 18 U/L (12-78); ALBUMIN 3.2 g/dL (3.4-5.0); ALKALINE PHOSPHATASE 74 U/L (46-116); ANION GAP 8 mmol/L (8-16); ASPARTATE AMINOTRANSFERASE 11 U/L (15-37); BILIRUBIN,TOTAL 0.5 mg/dL (0.1-1.0); CALCIUM, TOTAL 8.4 mg/dL (8.8-10.5); CARBON DIOXIDE 27 mmol/L (22-29); CHLORIDE 105 mmol/L (98-107); CHOL/HDL RATIO 2.2 (3.9-5.7); CHOLESTEROL 154 mg/dL (131-200); CREATININE 0.69 mg/dL (0.60-1.30); FREE T4 (FREE THYROXINE) 0.94 ng/dL (0.76-1.46); GLOMERULAR FILTR. RATE CALC > 60 mL/min (>60); GLUCOSE,RANDOM 82 mg/dL (70-110); HDL CHOLESTEROL 71 mg/dL (40-60); LDL CHOL (CALC.) 71 mg/dL (0-130); SODIUM SERUM 140 mmol/L (136-145); THYROID STIMULATING HORMONE 0.73 uIU/mL (0.36-3.74); TOTAL PROTEIN, SERUM 6.7 g/dL (6.4-8.2); TRIGLYCERIDES 59 mg/dL (15-150); UREA NITROGEN, BLOOD 6 mg/dL (7-18)
[2020-12-26] MEDS: IBUPROFEN 600 MG TABLET PO PRN (12:42)
[2020-12-26 16:18] VITALS: BP 140/82
[2020-12-26] MEDS: DIVALPROEX SODIUM 500 MG ER TABLET PO SCH (20:25)
[2020-12-27 04:36] VITALS: BP 123/79
[2020-12-27 05:06] VITALS: BP 127/74
[2020-12-27 08:37] VITALS: BP 144/95
[2020-12-27] MEDS: GABAPENTIN 300 MG CAPSULE PO SCH ×4 (08:48→20:18)
[2020-12-27] MEDS: OMEGA-3/DHA/EPA/FISH OIL 1,000 MG CAPSULE PO SCH (08:48)
[2020-12-27] MEDS: DULoxetine HCL 60 MG CAPSULE PO SCH (08:48)
[2020-12-27] MEDS: NALTREXONE HCL 50 MG TABLET PO SCH (08:48)
[2020-12-27] MEDS: ARIPiprazole 10 MG TABLET PO SCH (08:48)
[2020-12-27 16:21] VITALS: BP 140/62
[2020-12-27] MEDS: DIVALPROEX SODIUM 500 MG ER TABLET PO SCH (20:18)
[2020-12-28 00:26] VITALS: BP 136/64
[2020-12-28 02:30] VITALS: BP 136/66
[2020-12-28] MEDS: DULoxetine HCL 60 MG CAPSULE PO SCH (08:39)
[2020-12-28] MEDS: OMEGA-3/DHA/EPA/FISH OIL 1,000 MG CAPSULE PO SCH (08:39)
[2020-12-28] MEDS: GABAPENTIN 300 MG CAPSULE PO SCH ×4 (08:39→20:18)
[2020-12-28] MEDS: ARIPiprazole 10 MG TABLET PO SCH (08:39)
[2020-12-28] MEDS: NALTREXONE HCL 50 MG TABLET PO SCH (08:39)
[2020-12-28 10:32] VITALS: BP 134/68
[2020-12-28 16:00] VITALS: BP 119/72
[2020-12-28 16:18] VITALS: BP 119/72
[2020-12-28] MEDS: DIVALPROEX SODIUM 500 MG ER TABLET PO SCH (20:18)
[2020-12-29 00:49] VITALS: BP 110/76
[2020-12-29 03:38] VITALS: BP 121/68
[2020-12-29 08:00] VITALS: BP 122/88
[2020-12-29] MEDS: ARIPiprazole 10 MG TABLET PO SCH (08:24)
[2020-12-29] MEDS: GABAPENTIN 300 MG CAPSULE PO SCH ×4 (08:24→20:27)
[2020-12-29] MEDS: DULoxetine HCL 60 MG CAPSULE PO SCH (08:24)
[2020-12-29] MEDS: NALTREXONE HCL 50 MG TABLET PO SCH (08:24)
[2020-12-29] MEDS: OMEGA-3/DHA/EPA/FISH OIL 1,000 MG CAPSULE PO SCH (08:24)
[2020-12-29 08:36] VITALS: BP 128/88
[2020-12-29 16:00] VITALS: BP 114/78
[2020-12-29 16:24] VITALS: BP 114/78
[2020-12-29] MEDS: DIVALPROEX SODIUM 500 MG ER TABLET PO SCH (20:27)
[2020-12-30 02:13] VITALS: BP 101/77
[2020-12-30 08:17] VITALS: BP 142/89
[2020-12-30] MEDS: OMEGA-3/DHA/EPA/FISH OIL 1,000 MG CAPSULE PO SCH (08:48)
[2020-12-30] MEDS: ARIPiprazole 10 MG TABLET PO SCH (08:48)
[2020-12-30] MEDS: NALTREXONE HCL 50 MG TABLET PO SCH (08:48)
[2020-12-30] MEDS: GABAPENTIN 300 MG CAPSULE PO SCH ×4 (08:48→20:15)
[2020-12-30] MEDS: DULoxetine HCL 60 MG CAPSULE PO SCH (08:48)
[2020-12-30 16:07] VITALS: BP 140/79
[2020-12-30] MEDS: DIVALPROEX SODIUM 500 MG ER TABLET PO SCH (20:15)
[2020-12-31 02:43] VITALS: BP 123/72
[2020-12-31] MEDS: OMEGA-3/DHA/EPA/FISH OIL 1,000 MG CAPSULE PO SCH (08:15)
[2020-12-31] MEDS: GABAPENTIN 300 MG CAPSULE PO SCH ×2 (08:15→12:05)
[2020-12-31] MEDS: ARIPiprazole 10 MG TABLET PO SCH (08:15)
[2020-12-31] MEDS: NALTREXONE HCL 50 MG TABLET PO SCH (08:18)
[2020-12-31] MEDS: DULoxetine HCL 60 MG CAPSULE PO SCH (08:18)
[2020-12-31 08:20] VITALS: BP 137/76
[2020-12-31] MEDS: IBUPROFEN 600 MG TABLET PO PRN (10:38)
== END 2020-12-31 12:35 | disposition home or self-care (01) | DRG 750 ==
LOC: B3A 17:01
PROVIDERS: ADMIT Psychiatry & Neurology Child & Adolescent Psychiatry; ATTEND Psychiatry & Neurology Child & Adolescent Psychiatry
DX: F25.1 Schizoaffective disorder, depressive type (principal); R45.851 Suicidal ideations; Z59.0 Homelessness; M54.2 Cervicalgia; E66.9 Obesity, unspecified; Z68.32 Body mass index [BMI] 32.0-32.9, adult; I10 Essential (primary) hypertension; G89.29 Other chronic pain; D64.9 Anemia, unspecified; J44.9 Chronic obstructive pulmonary disease, unspecified; F12.90 Cannabis use, unspecified, uncomplicated; F15.90 Other stimulant use, unspecified, uncomplicated; E87.6 Hypokalemia; F32.9 Major depressive disorder, single episode, unspecified; F41.9 Anxiety disorder, unspecified; Z28.21 Immunization not carried out because of patient refusal
CPT/HCPCS: 80053; 80061; 83036; 84439; 84443; 85025; 87081; 90732

== ENCOUNTER 2021-06-07 12:20 | Inpatient (IN) | payer MEDICAID ==
[~2021-06-07 12:20] MED LIST changes: -ARIP10TA38 PO; +ARIP15TA27 PO; +CEPH500C3 PO; +DIVA-112 PO; -DIVA-80 PO; -DULO-8 PO; -GABA-1181 PO; -NALT50TA PO; -OMEG-135 PO
[2021-06-07] MEDS ORDERED: LOPERAMIDE HCL 2 MG CAPSULE PO PRN (14:00)
[2021-06-07] MEDS ORDERED: ACETAMINOPHEN 325 MG TABLET PO PRN (14:00)
[2021-06-07] MEDS ORDERED: ZOLPIDEM TARTRATE 10 MG TABLET PO PRN (14:00)
[2021-06-07] MEDS ORDERED: MAGNESIUM HYDROXIDE SUSPENSION 30 ML UDCUP PO PRN (14:00)
[2021-06-07] MEDS ORDERED: LORazepam 2 MG TABLET PO PRN (14:00)
[2021-06-07] MEDS ORDERED: HydrOXYzine PAMOATE 50 MG CAPSULE PO PRN (14:00)
[2021-06-07] MEDS ORDERED: GuaiFENesin/D-METHORPHAN [SUGAR-FREE] 200-20MG/10 ML SYRUP UDCUP PO PRN (14:00)
[2021-06-07] MEDS ORDERED: MAG HYDROX/AL HYDROX/SIMETH ES 30 ML SUSPENSION UDCUP PO PRN (14:00)
[2021-06-07] MEDS ORDERED: OLANZapine 5 MG RAPDIS TABLET PO PRN (14:00)
[2021-06-07 16:12] VITALS: BP 152/91
[2021-06-07] MEDS ORDERED: PNEUMOCOCCAL VACCINE POLYVALENT 0.5 ML VIAL [PPSV23] IM. ONE (17:15)
[2021-06-07] MEDS: THIAMINE 100 MG TABLET PO SCH (17:25)
[2021-06-07] MEDS ORDERED: HYDROCORTISONE 1% 30 GM CREAM TP PRN (19:15)
[2021-06-07] MEDS: OLANZapine 5 MG RAPDIS TABLET PO SCH (20:38)
[2021-06-07] MEDS: CEPHALEXIN MONOHYDRATE 500 MG CAPSULE PO SCH (21:09)
[2021-06-08 01:00] VITALS: BP 145/82
[2021-06-08 08:36] VITALS: BP 131/84
[2021-06-08] MEDS: FOLIC ACID 1 MG TABLET PO SCH (09:28)
[2021-06-08] MEDS: MULTIVITAMINS WITH MINERALS, THERAPEUTIC TABLET PO SCH (09:29)
[2021-06-08] MEDS: CEPHALEXIN MONOHYDRATE 500 MG CAPSULE PO SCH ×4 (09:29→20:34)
[2021-06-08] MEDS: THIAMINE 100 MG TABLET PO SCH ×2 (09:29→16:35)
[2021-06-08] MEDS ORDERED: ARIPiprazole ER SUSPENSION 400 MG PRE-FILLED DUAL CHAMBER SYRINGE IM ONE (14:15)
[2021-06-08] MEDS ORDERED: PALIPERIDONE PALMITATE 234 MG/1.5 ML SYRINGE IM ONE (14:30)
[2021-06-08] MEDS: OLANZapine 5 MG RAPDIS TABLET PO SCH (20:34)
[2021-06-09 06:17] VITALS: BP 141/83
[2021-06-09 08:19] VITALS: BP 124/73
[2021-06-09] MEDS: FOLIC ACID 1 MG TABLET PO SCH (10:04)
[2021-06-09] MEDS: THIAMINE 100 MG TABLET PO SCH ×2 (10:04→16:37)
[2021-06-09] MEDS: MULTIVITAMINS WITH MINERALS, THERAPEUTIC TABLET PO SCH (10:04)
[2021-06-09] MEDS: CEPHALEXIN MONOHYDRATE 500 MG CAPSULE PO SCH ×4 (10:04→20:23)
[2021-06-09 16:43] VITALS: BP 120/68
[2021-06-09] MEDS: OLANZapine 5 MG RAPDIS TABLET PO SCH (20:24)
[2021-06-10 06:06] VITALS: BP 126/74
[2021-06-10] MEDS: MULTIVITAMINS WITH MINERALS, THERAPEUTIC TABLET PO SCH (09:23)
[2021-06-10] MEDS: FOLIC ACID 1 MG TABLET PO SCH (09:24)
[2021-06-10] MEDS: CEPHALEXIN MONOHYDRATE 500 MG CAPSULE PO SCH ×4 (09:24→20:51)
[2021-06-10] MEDS: THIAMINE 100 MG TABLET PO SCH ×2 (09:24→16:45)
[2021-06-10] MEDS: OLANZapine 5 MG RAPDIS TABLET PO SCH (20:32)
[2021-06-11] MEDS: FOLIC ACID 1 MG TABLET PO SCH (09:33)
[2021-06-11] MEDS: MULTIVITAMINS WITH MINERALS, THERAPEUTIC TABLET PO SCH (09:33)
[2021-06-11] MEDS: CEPHALEXIN MONOHYDRATE 500 MG CAPSULE PO SCH ×4 (09:34→20:07)
[2021-06-11] MEDS: THIAMINE 100 MG TABLET PO SCH ×2 (09:34→16:17)
[2021-06-11] MEDS: DULoxetine HCL 20 MG CAPSULE PO SCH (10:00)
[2021-06-11 16:28] VITALS: BP 115/69
[2021-06-11] MEDS: OLANZapine 10 MG RAPDIS TABLET PO SCH (20:07)
[2021-06-12 01:00] VITALS: BP 114/68
[2021-06-12] MEDS ORDERED: PALIPERIDONE PALMITATE 156 MG/ML SYRINGE IM ONE (09:00)
[2021-06-12] MEDS: MULTIVITAMINS WITH MINERALS, THERAPEUTIC TABLET PO SCH (09:08)
[2021-06-12] MEDS: CEPHALEXIN MONOHYDRATE 500 MG CAPSULE PO SCH ×3 (09:08→16:35)
[2021-06-12] MEDS: DULoxetine HCL 20 MG CAPSULE PO SCH (09:08)
[2021-06-12] MEDS: THIAMINE 100 MG TABLET PO SCH ×2 (09:08→16:35)
[2021-06-12] MEDS: FOLIC ACID 1 MG TABLET PO SCH (09:08)
[2021-06-12] MEDS: OLANZapine 10 MG RAPDIS TABLET PO SCH (20:43)
[2021-06-13 01:22] VITALS: BP 118/72
[2021-06-13] MEDS ORDERED: PALIPERIDONE PALMITATE 234 MG/1.5 ML SYRINGE IM ONE (09:00)
[2021-06-13] MEDS: MULTIVITAMINS WITH MINERALS, THERAPEUTIC TABLET PO SCH (09:00)
[2021-06-13] MEDS: FOLIC ACID 1 MG TABLET PO SCH (09:00)
[2021-06-13] MEDS: DULoxetine HCL 20 MG CAPSULE PO SCH (09:00)
[2021-06-13] MEDS: THIAMINE 100 MG TABLET PO SCH ×2 (09:00→17:27)
[2021-06-13] MEDS: OLANZapine 10 MG RAPDIS TABLET PO SCH (20:25)
[2021-06-14 09:43] VITALS: BP 106/55
[2021-06-14] MEDS: MULTIVITAMINS WITH MINERALS, THERAPEUTIC TABLET PO SCH (09:44)
[2021-06-14] MEDS: FOLIC ACID 1 MG TABLET PO SCH (09:44)
[2021-06-14] MEDS: DULoxetine HCL 20 MG CAPSULE PO SCH (09:44)
[2021-06-14] MEDS: THIAMINE 100 MG TABLET PO SCH ×2 (09:44→16:34)
[2021-06-14] MEDS ORDERED: OMEG-135 PO (15:43)
[2021-06-14] MEDS ORDERED: NALT50TA PO (15:43)
[2021-06-14] MEDS ORDERED: OLAN10TA26 PO (15:43)
[2021-06-14] MEDS ORDERED: MELA5TAB40 PO (15:43)
[2021-06-14] MEDS ORDERED: DULO30CA2 PO (15:43)
[2021-06-14] MEDS ORDERED: ACETAMINOPHEN 325 MG TABLET PO PRN (18:00)
[2021-06-14] MEDS: OLANZapine 10 MG RAPDIS TABLET PO SCH (20:33)
[2021-06-14] MEDS ORDERED: MELATONIN 5 MG TABLET PO SCH (21:00)
[2021-06-15 00:19] VITALS: BP 111/67
[2021-06-15] MEDS: MULTIVITAMINS WITH MINERALS, THERAPEUTIC TABLET PO SCH (08:50)
[2021-06-15] MEDS: FOLIC ACID 1 MG TABLET PO SCH (08:51)
[2021-06-15] MEDS: THIAMINE 100 MG TABLET PO SCH (08:51)
[2021-06-15] MEDS ORDERED: NALTREXONE HCL 50 MG TABLET PO SCH (09:00)
[2021-06-15] MEDS ORDERED: OMEGA-3/DHA/EPA/FISH OIL 1,000 MG CAPSULE PO SCH (09:00)
[2021-06-15] MEDS ORDERED: DULoxetine HCL 30 MG CAPSULE PO SCH (09:00)
[2021-06-17] MEDS ORDERED: PALIPERIDONE PALMITATE 156 MG/ML SYRINGE IM ONE (09:00)
[2021-07-06] MEDS ORDERED: ARIPiprazole ER SUSPENSION 400 MG PRE-FILLED DUAL CHAMBER SYRINGE IM SCH (09:00)
== END 2021-06-15 13:00 | disposition home or self-care (01) | DRG 750 ==
LOC: B2S 16:59
PROVIDERS: ADMIT Psychiatry & Neurology Psychiatry; ATTEND Psychiatry & Neurology Psychiatry
DX: F25.1 Schizoaffective disorder, depressive type (principal); R45.851 Suicidal ideations; Z59.00 Homelessness unspecified; D64.9 Anemia, unspecified; F12.90 Cannabis use, unspecified, uncomplicated; F14.90 Cocaine use, unspecified, uncomplicated; F41.8 Other specified anxiety disorders; G89.29 Other chronic pain; I10 Essential (primary) hypertension; W57.XXXA Bitten or stung by nonvenomous insect and other nonvenomous arthropods, initial encounter; J44.9 Chronic obstructive pulmonary disease, unspecified; L30.9 Dermatitis, unspecified; N39.0 Urinary tract infection, site not specified; Z87.891 Personal history of nicotine dependence; Z91.14 Patient's other noncompliance with medication regimen; Z91.19 Patient's noncompliance with other medical treatment and regimen; Z28.21 Immunization not carried out because of patient refusal; Y93.89 Activity, other specified; Y92.89 Other specified places as the place of occurrence of the external cause; Y99.8 Other external cause status; Z79.899 Other long term (current) drug therapy; Z55.9 Problems related to education and literacy, unspecified; Z65.3 Problems related to other legal circumstances
CPT/HCPCS: J0401; Q9967

== ENCOUNTER 2021-09-11 09:54 | Emergency (ER) | payer MEDICAID ==
[~2021-09-11] VITALS: Ht 172.7 cm; Wt 136.0 kg
[~2021-09-11 09:54] MED LIST changes: -ARIP15TA27 PO; -CEPH500C3 PO; -DIVA-112 PO; +DULO30CA2 PO; +MELA5TAB40 PO; +NALT50TA PO; +OLAN10TA26 PO; +OMEG-135 PO
[2021-09-11 10:25] VITALS: BP 123/75
[2021-09-11 11:05] LABS: BASOPHILS % (AUTO) 0.7 % (0.0-2.0); EOSINOPHILS % (AUTO) 1.7 % (1.0-6.0); HEMATOCRIT 30.1 % (36-46); HEMOGLOBIN 9.8 g/dL (12.0-16.0); LYMPHOCYTES # (AUTO) 1.1 K/uL (1.0-4.8); LYMPHOCYTES % (AUTO) 15.7 % (22.0-44.0); MEAN CORPUSCULAR HGB CONC 32.4 G/dL (31.0-37.0); MEAN CORPUSCULAR VOLUME 71 fL (80-100); MONOCYTES # (AUTO) 0.5 K/uL (0.1-1.0); MONOCYTES % (AUTO) 7.6 % (2.0-9.0); NEUTROPHILS # (AUTO) 5.4 K/uL (1.8-7.7); NEUTROPHILS % (AUTO) 74.3 % (40.0-70.0); PLATELET COUNT (AUTO) 188 K/uL (150-450); RED BLOOD CELL COUNT(AUTO) 4.25 MIL/uL (4.00-5.20); RED CELL DISTRIBUTION WIDTH 20.2 % (11.5-14.5)
[2021-09-11 11:08] LABS: ANION GAP 7 mmol/L (8-16); CALCIUM, TOTAL 8.7 mg/dL (8.8-10.5); CARBON DIOXIDE 28 mmol/L (22-29); CHLORIDE 105 mmol/L (98-107); CREATININE 0.74 mg/dL (0.60-1.30); GLOMERULAR FILTR. RATE CALC > 60 mL/min (>60); GLUCOSE,RANDOM 96 mg/dL (70-110); POTASSIUM 3.9 mmol/L (3.5-5.1); SODIUM SERUM 140 mmol/L (136-145); UREA NITROGEN, BLOOD 6 mg/dL (7-18)
[2021-09-11 11:14] LABS: ALANINE AMINOTRANSFERASE 22 U/L (12-78); ALBUMIN 3.3 g/dL (3.4-5.0); ALKALINE PHOSPHATASE 108 U/L (46-116); ASPARTATE AMINOTRANSFERASE 22 U/L (15-37); BILIRUBIN,TOTAL 0.2 mg/dL (0.1-1.0); TOTAL PROTEIN, SERUM 6.6 g/dL (6.4-8.2)
[2021-09-11] MEDS ORDERED: AMOX TR/POT CLAV 875 MG/125 MG TABLET PO ONE (12:15)
[2021-09-11] MEDS ORDERED: ACETAMINOPHEN 500 MG TABLET PO ONE (12:15)
[2021-09-11] MEDS ORDERED: LORazepam 2 MG TABLET PO ONE (13:15)
[2021-09-11 19:09] LABS: COVID AG,FIA SOURCE NASOPHARYNGEAL
== END 2021-09-11 20:44 | disposition home or self-care (01) ==
LOC: EMS 09:54
DX: F25.9 Schizoaffective disorder, unspecified (principal); L73.9 Follicular disorder, unspecified; F31.9 Bipolar disorder, unspecified; F41.9 Anxiety disorder, unspecified; J45.909 Unspecified asthma, uncomplicated; F11.90 Opioid use, unspecified, uncomplicated; F12.90 Cannabis use, unspecified, uncomplicated; F15.90 Other stimulant use, unspecified, uncomplicated; F17.210 Nicotine dependence, cigarettes, uncomplicated; Z79.899 Other long term (current) drug therapy; Z20.822 Contact with and (suspected) exposure to COVID-19
CPT/HCPCS: 36415; 80053; 85025; 87426; 99284; G0480